=== PATIENT | female | born 1930 | race Caucasian/White ===

== ENCOUNTER 2017-10-06 12:29 | Emergency (ER) | payer MEDICARE ==
--- NOTE | 2017-10-06 12:39 | ED Physician Documentation ---
General Adult - HISTORIAN Historian: patient - HPI Stated Complaint: fall, hip pain Chief Complaint: General Adult Onset: minutes Timing: still present Severity: moderate Further Comments: yes (Pt is an 87 yo female who tripped and fell when she was entering her house and landed on a carpeted floor. Pt c/o R hip soreness, but says this has been improving since the incident a short time ago. Pt is able to stand and walk and appears in little distress. There is no rotation of the LE.) - ROS CONST: no problems EYES/ENT: none CVS/RESP: none GI/: none MS/SKIN/LYMPH: other (R hip soreness) - PAST HX Past History: hypertension, other (gout) Allergies/Adverse Reactions: Allergies Allergy/AdvReac Type Severity Reaction Status Date / Time No Known Allergies Allergy Verified 10/06/17 12:42 Home Medications: Ambulatory Orders Medication Instructions Recorded Hydroxyurea [hydroxyure] 500 mg PO DAILY 07/31/12 - SOCIAL HX Smoking History: non-smoker - FAMILY HX Family History: No - VITAL SIGNS Vital Signs: Vital Signs Temp Pulse Resp BP Pulse Ox 145/82 12/25/12 16:27 - REVIEWED ASSESSMENTS Nursing Assessment Reviewed: Yes Vitals Reviewed: Yes Progress - Progress Progress: Pt moves LE's very well and is surprising limber for age. Pt agrees no x-ray is necessary. Pt states that she has "more soreness than actual pain." Tylenol/Motrin prn. General Adult Physical Exam - PHYSICAL EXAM GENERAL APPEARANCE: no distress NECK: normal inspection, supple RESPIRATORY: no resp distress, chest non-tender, breath sounds normal CVS: reg rate & rhythm, heart sounds normal BACK: normal inspection, no CVA tenderness SKIN: warm/dry, normal color EXTREMITIES: normal range of motion, no evidence of injury, other (slight tenderness R hip laterally. Pt has FROM and is suprising limber for age.) NEURO: oriented X3, motor nml, sensation nml Discharge Clincal Impression: R hip strain Referrals: Suzette Kilpatrick MD [Primary Care Provider] - Condition: Good Disposition: 01 HOME, SELF-CARE Decision to Admit: NO Decision Time: 12:59
[2017-10-06 12:46] VITALS: BP 161/66
== END 2017-10-06 13:03 | disposition home or self-care (01) ==
LOC: ED 12:29
DX: S76.011A Strain of muscle, fascia and tendon of right hip, initial encounter (principal); W19.XXXA Unspecified fall, initial encounter; Y92.9 Unspecified place or not applicable
CPT/HCPCS: 99282

== ENCOUNTER 2017-10-12 12:34 | Inpatient (IN) | payer MEDICARE ==
--- NOTE | 2017-10-12 13:40 | History and Physical Report ---
History of Present Illnes - History of Present Illness Reason for Visit: R hip fx History of Present Illness: Patient fell a week ago and suffered a R hip fx. She underwent R hip hemiarthroplasty by Dr. Lombardo at [facility] on 10-10-17. Post op course has been uncomplicated except some anemia. Baseline in the 9 range. Today is 8. She has polycythemia vera and has had some labs and supplements added by Medicine at [facility]. She is feeling good. Has not taken any pain pills yet. She was also found to have UTI at [facility]. - Past Medical History Cardiac: HTN Heme/Onc: Anemia NOS, B12 deficiency, Iron deficiency anemia, Other ( Polycythemia Vera - DR. Forrester) Musculoskeletal: Osteoarthritis Endocrine: Other (Gout) - Past Surgical History Past Surgical History: Appendectomy, Hysterectomy, Total Hip Replacement (R) - Past Family History Mother Family History: , Other (hip fx) Father Family History: CVA, - Past Social History Smoke: No Alcohol: None Drugs: None Lives: Alone Domestic Violence: Negative - Health Maintenance Health Maintenance: Influenza Vaccine, Pneumococcal Vaccine Influenza Vaccine: Current for this Influenza Season Pneumonia Vaccine: Yes Resuscitation Status: full Review of Systems - Review of Systems Constitutional: Weakness. negative: Fever Eyes: negative: pain ENT: negative: Nose Discharge, Nose Congestion Respiratory: negative: Cough, Shortness of Breath Cardiovascular: negative: Chest Pain Gastrointestinal: negative: Nausea, Vomiting, Abdominal Pain, Diarrhea, Constipation Genitourinary: negative: Dysuria, Frequency Musculoskeletal: Leg Pain (mild ache). negative: Neck Pain Skin: negative: Rash Neurological: Weakness - Medications/Allergies Allergies/Adverse Reactions: Allergies Allergy/AdvReac Type Severity Reaction Status Date / Time No Known Allergies Allergy Verified 10/06/17 12:42 Home Medications: Home Medications Acetaminophen [Tylenol] 650 mg PO QID PRN 10/12/17 Cefdinir [Omnicef] 300 mg PO BID 10/12/17 Cholecalciferol [Vitamin D-3] 2,000 units PO QDAY 10/12/17 Cyanocobalamin [Vitamin B-12] 1 ml SQ DAILY 10/12/17 Enoxaparin Sodium [Lovenox] 40 mg SQ DAILY 10/12/17 Ferrous Sulfate [Feosol] 325 mg PO DAILY 10/12/17 Folic Acid [Folvite] 1 mg PO DAILY 10/12/17 HYDROcodone /APAP 5/325 [[place] 5/325] 5 - 325 mg PO QID PRN 10/12/17 Hydroxyurea [Hydrea] 500 mg PO [id number] 10/12/17 Polyethylene Glycol 3350 [Miralax] 17 g PO DAILY PRN 10/12/17 Exam - Exam General: Alert, Oriented to Person, Oriented to Place, Oriented to Time, Cooperative, No acute distress HEENT: Atraumatic, PERRLA, EOMI, Mouth Mucous membr. moist/[place] Neck: Normal Range of Motion Lungs: Clear to auscultation, Normal air movement, Speaks full Sentences Cardiovascular: Regular rate Abdomen: Normal bowel sounds, Soft, No tenderness Integumentary: Normal, Other (R hip incision - collette - no signs of infection.) Extremities: No: No edema Neurological: Generalized Weakness Psych/Mental Status: Mental status NL, Mood NL, Appropriate Affect, Intact Judgment Assessment/Plan - Assessment/Plan (1) Status post hip hemiarthroplasty Status: Acute Current Visit: Yes Plan: Admit for PT/OT. ON lovenox for 14 more days for DVT prevention. Patient is already ambulating well. Posterior hip dislocations for 5 weeks. [place] removed in 10-14 days. F/U xrays in 1 month. (2) Closed right hip fracture Status: Acute Current Visit: Yes Qualifiers: Encounter type: subsequent encounter Fracture healing: with routine healing Qualified Code(s): S72.001D - Fracture of unspecified part of neck of right femur, subsequent encounter for closed fracture with routine healing Plan: Patient had a vitamin D level of 10. She was started on Vitamin D and Calcium. (3) HTN (hypertension) Status: Chronic Current Visit: No Qualifiers: Hypertension type: essential hypertension Qualified Code(s): I10 - Essential (primary) hypertension Plan: Patient on metoprolol 50 mg bid. Her maxzide is on hold due to possible acute kidney injury. Potassium was noted at 5.1 and she got a dose of kayexelate at [facility]. (4) Anemia Status: Acute Current Visit: Yes Qualifiers: Anemia type: unspecified type Qualified Code(s): D64.9 - Anemia, unspecified Plan: Will monitor closely. Just started iron supplement daily. Watch for constipation. She had acute kidney injury noted at [facility]. Her Cr was 1.10 on admission. Maxzide was held. She did get IVF hydration. (5) Iron deficiency anemia Status: Acute Current Visit: Yes Qualifiers: Iron deficiency anemia type: unspecified iron deficiency Qualified Code(s) : D50.9 - Iron deficiency anemia, unspecified (6) Polycythemia vera Status: Chronic Current Visit: No Plan: Patient continued on hydroxyurea 1000 mg on Mon and Thur and 500 mg on Sun, Sun , Sun, Sat, and Sun. (7) UTI (urinary tract infection) Status: Acute Current Visit: Yes Qualifiers: Urinary tract infection type: acute cystitis Hematuria presence: with hematuria Qualified Code(s): N30.01 - Acute cystitis with hematuria Plan: Will finish cefdinir. Push fluids. Patient had perkins during surgery. Urine culture grew pansensitive E.Coli. She was started on rocephin initially then transitioned to cedinir. This will finish in 5 days. (8) Gout Status: Chronic Current Visit: No Qualifiers: Gout site: unspecified site Gout etiology: unspecified cause Chronicity: chronic Presence of tophus: without tophus Qualified Code(s): M1A.9XX0 - Chronic gout, unspecified, without tophus (tophi) Plan: Continue allopurinol. (9) Vitamin B12 deficiency Status: Acute Current Visit: Yes Plan: B12 noted to be 228. She was started on B12 1000 IU daily. VTE Assessment - RISK FACTOR SCORE VTE RISK FACTOR SCORES: AGE OVER 60 YEARS, HIP, PELVIS, OR LEG FX - RISK VTE MODERATE RISK: SCORE OF 2 (RISK PROXIMAL DVT 2-4%) PROPHYAXIS NEEDED
[2017-10-12 14:13] VITALS: BMI 21.4
[2017-10-12] MEDS ORDERED: ACETAMINOPHEN 325 MG TABLET PO PRN (14:56)
[2017-10-12] MEDS ORDERED: POLYETHYLENE GLYCOL 3350 17 GM POWD.PACK PO PRN ×2 (14:59→16:04)
[2017-10-12] MEDS ORDERED: HYDROcodone /APAP 5/325 1 EACH TABLET PO PRN ×2 (14:59→16:04)
[2017-10-12] MEDS: FERROUS SULFATE 325 MG TABLET PO SCH (16:31)
[2017-10-12] MEDS: METOPROLOL TARTRATE 50 MG TABLET PO SCH (20:17)
[2017-10-12] MEDS: CEFDINIR 300 MG CAPSULE PO SCH (20:17)
[2017-10-12] MEDS ORDERED: LOPRESSOR 50 MG PO SCH (21:00)
[2017-10-13] MEDS ORDERED: ALLOPURINOL 100 MG TABLET ONE (00:55)
[2017-10-13] MEDS ORDERED: ENOXAPARIN SODIUM 40 MG/0.4 ML DISP.SYRIN SQ ONE (00:55)
[2017-10-13] MEDS ORDERED: CHOLECALCIFEROL (VIT D3) 1,000 UNIT TABLET PO ONE (00:56)
[2017-10-13] MEDS ORDERED: ALLOPURINOL 300 MG PO SCH (09:00)
[2017-10-13] MEDS ORDERED: CHOLECALCIFEROL (VIT D3) 1,000 UNIT TABLET PO SCH ×2 (09:00)
[2017-10-13] MEDS ORDERED: FERROUS SULFATE 325 MG PO SCH (09:00)
[2017-10-13] MEDS: FOLIC ACID 1 MG TABLET PO SCH (09:01)
[2017-10-13] MEDS: METOPROLOL TARTRATE 50 MG TABLET PO SCH ×2 (09:02→20:06)
[2017-10-13] MEDS: HYDROXYUREA 500 MG CAPSULE PO SCH (09:02)
[2017-10-13] MEDS: CYANOCOBALAMIN (VITAMIN B12) 1,000 MCG TABLET PO SCH (09:02)
[2017-10-13] MEDS: ENOXAPARIN SODIUM 40 MG/0.4 ML DISP.SYRIN SQ SCH (09:02)
[2017-10-13] MEDS: ALLOPURINOL 100 MG TABLET PO SCH (09:02)
[2017-10-13] MEDS: CEFDINIR 300 MG CAPSULE PO SCH ×2 (09:07→20:05)
[2017-10-13] MEDS: FERROUS SULFATE 325 MG TABLET PO SCH (11:10)
[2017-10-14] MEDS: ALLOPURINOL 100 MG TABLET PO SCH (08:55)
[2017-10-14] MEDS: ENOXAPARIN SODIUM 40 MG/0.4 ML DISP.SYRIN SQ SCH (08:56)
[2017-10-14] MEDS: FOLIC ACID 1 MG TABLET PO SCH (08:56)
[2017-10-14] MEDS: CYANOCOBALAMIN (VITAMIN B12) 1,000 MCG TABLET PO SCH (08:56)
[2017-10-14] MEDS: CHOLECALCIFEROL (VIT D3) 1,000 UNIT TABLET PO SCH (08:56)
[2017-10-14] MEDS: HYDROXYUREA 500 MG CAPSULE PO SCH (08:56)
[2017-10-14] MEDS: METOPROLOL TARTRATE 50 MG TABLET PO SCH ×2 (08:56→20:15)
[2017-10-14] MEDS: CEFDINIR 300 MG CAPSULE PO SCH ×2 (08:56→20:18)
[2017-10-14] MEDS: FERROUS SULFATE 325 MG TABLET PO SCH (11:27)
[2017-10-15] MEDS: FOLIC ACID 1 MG TABLET PO SCH (09:53)
[2017-10-15] MEDS: HYDROXYUREA 500 MG CAPSULE PO SCH ×2 (09:54→13:23)
[2017-10-15] MEDS: ENOXAPARIN SODIUM 40 MG/0.4 ML DISP.SYRIN SQ SCH (09:54)
[2017-10-15] MEDS: METOPROLOL TARTRATE 50 MG TABLET PO SCH ×2 (09:54→20:17)
[2017-10-15] MEDS: ALLOPURINOL 100 MG TABLET PO SCH (09:55)
[2017-10-15] MEDS: CYANOCOBALAMIN (VITAMIN B12) 1,000 MCG TABLET PO SCH (09:58)
[2017-10-15] MEDS: CHOLECALCIFEROL (VIT D3) 1,000 UNIT TABLET PO SCH (09:58)
[2017-10-15] MEDS: CEFDINIR 300 MG CAPSULE PO SCH ×2 (10:05→20:17)
[2017-10-15] MEDS: FERROUS SULFATE 325 MG TABLET PO SCH (11:18)
[2017-10-15] MEDS ORDERED: HYDROXYUREA 500 MG CAPSULE PO SCH (12:00)
[2017-10-15 13:12] LABS: MEAN CORPUSCULAR HEMOGLOBIN 41.9 pg (28.0-34.0); MEAN CORPUSCULAR VOLUME 127.4 fl (80.0-100.0)
[2017-10-16] MEDS: CEFDINIR 300 MG CAPSULE PO SCH ×2 (09:23→19:56)
[2017-10-16] MEDS: ENOXAPARIN SODIUM 40 MG/0.4 ML DISP.SYRIN SQ SCH (09:24)
[2017-10-16] MEDS: FOLIC ACID 1 MG TABLET PO SCH (09:24)
[2017-10-16] MEDS: METOPROLOL TARTRATE 50 MG TABLET PO SCH ×2 (09:24→19:57)
[2017-10-16] MEDS: HYDROXYUREA 500 MG CAPSULE PO SCH (09:24)
[2017-10-16] MEDS: CHOLECALCIFEROL (VIT D3) 1,000 UNIT TABLET PO SCH (09:25)
[2017-10-16] MEDS: ALLOPURINOL 100 MG TABLET PO SCH (09:25)
[2017-10-16] MEDS: CYANOCOBALAMIN (VITAMIN B12) 1,000 MCG TABLET PO SCH (09:25)
[2017-10-16] MEDS: FERROUS SULFATE 325 MG TABLET PO SCH (12:14)
[2017-10-17] MEDS: ENOXAPARIN SODIUM 40 MG/0.4 ML DISP.SYRIN SQ SCH (09:12)
[2017-10-17] MEDS: CYANOCOBALAMIN (VITAMIN B12) 1,000 MCG TABLET PO SCH (09:13)
[2017-10-17] MEDS: ALLOPURINOL 100 MG TABLET PO SCH (09:13)
[2017-10-17] MEDS: CEFDINIR 300 MG CAPSULE PO SCH ×2 (09:14→20:07)
[2017-10-17] MEDS: HYDROXYUREA 500 MG CAPSULE PO SCH (09:14)
[2017-10-17] MEDS: FOLIC ACID 1 MG TABLET PO SCH (09:14)
[2017-10-17] MEDS: CHOLECALCIFEROL (VIT D3) 1,000 UNIT TABLET PO SCH (09:14)
[2017-10-17] MEDS: METOPROLOL TARTRATE 50 MG TABLET PO SCH ×2 (09:14→20:07)
[2017-10-17] MEDS: FERROUS SULFATE 325 MG TABLET PO SCH (11:32)
[2017-10-18] MEDS: ENOXAPARIN SODIUM 40 MG/0.4 ML DISP.SYRIN SQ SCH (08:34)
[2017-10-18] MEDS: FOLIC ACID 1 MG TABLET PO SCH (08:34)
[2017-10-18] MEDS: CHOLECALCIFEROL (VIT D3) 1,000 UNIT TABLET PO SCH (08:34)
[2017-10-18] MEDS: ALLOPURINOL 100 MG TABLET PO SCH (08:34)
[2017-10-18] MEDS: CYANOCOBALAMIN (VITAMIN B12) 1,000 MCG TABLET PO SCH (08:34)
[2017-10-18] MEDS: METOPROLOL TARTRATE 50 MG TABLET PO SCH ×2 (08:34→19:46)
[2017-10-18] MEDS: FERROUS SULFATE 325 MG TABLET PO SCH (11:24)
[2017-10-18] MEDS: HYDROXYUREA 500 MG CAPSULE PO SCH (11:24)
--- NOTE | 2017-10-19 08:18 | Discharge Summary ---
Discharge Summary - Discharge Sumary History of Present Illness: Patient fell a week ago and suffered a R hip fx. She underwent R hip hemiarthroplasty by Dr. Lombardo at [facility] on 10-10-17. Post op course has been uncomplicated except some anemia. Baseline in the 9 range. Today is 8. She has polycythemia vera and has had some labs and supplements added by Medicine at [facility]. She is feeling good. Has not taken any pain pills yet. She was also found to have UTI at [facility]. Condition at Discharge: Stable Home Medications: Ambulatory Orders Medication Instructions Recorded Hydroxyurea [hydroxyure] 500 mg PO MTH12 07/31/12 Acetaminophen [Tylenol] 650 mg PO QID PRN 10/12/17 Cholecalciferol [Vitamin D-3] 2,000 units PO QDAY 10/12/17 Folic Acid [Folvite] 1 mg PO DAILY 10/12/17 Hydroxyurea [Hydrea] 500 mg PO [id number] 10/12/17 Polyethylene Glycol 3350 [Miralax] 17 g PO DAILY PRN 10/12/17 Cyanocobalamin [Vitamin B-12] 1,000 mcg PO DAILY tablet 10/16/17 Ferrous Sulfate [Feosol] 325 mg PO 1100 tablet. 10/16/17 Metoprolol Tartrate [Lopressor] 50 mg PO BID tablet 10/16/17 Consultations this Visit: None Procedures this Visit: None Allergies/Adverse Reactions: Allergies Allergy/AdvReac Type Severity Reaction Status Date / Time No Known Allergies Allergy Verified 10/06/17 12:42 Patient Problems: Current Active Problems Problem Status Onset Anemia Acute Closed right hip fracture Acute Iron deficiency anemia Acute Status post hip hemiarthroplasty Acute UTI (urinary tract infection) Acute Vitamin B12 deficiency Acute Discharge Summary: Patient did well during her SNF stay. She reached therapy goals and will discharged with outpatient therapy. [facility] were not ready to come out at discharge so will bring her back in a few days for this. Maxzide continued to be held. F/U me in a month. She will see Dr. Lombardo in several weeks. Completed antibiotics for UTI. Discharged home in good condition. Hospital Course: Discharge Dx. Weakness. R hip fx - s/p hemiarthroplasty. HTN. polycythemia vera. Disposition - home with outpatient therapy
[2017-10-19] MEDS: FOLIC ACID 1 MG TABLET PO SCH (09:27)
[2017-10-19] MEDS: HYDROXYUREA 500 MG CAPSULE PO SCH (09:28)
[2017-10-19] MEDS: METOPROLOL TARTRATE 50 MG TABLET PO SCH ×2 (09:28→20:24)
[2017-10-19] MEDS: ENOXAPARIN SODIUM 40 MG/0.4 ML DISP.SYRIN SQ SCH (09:28)
[2017-10-19] MEDS: ALLOPURINOL 100 MG TABLET PO SCH (09:28)
[2017-10-19] MEDS: CHOLECALCIFEROL (VIT D3) 1,000 UNIT TABLET PO SCH (09:28)
[2017-10-19] MEDS: CYANOCOBALAMIN (VITAMIN B12) 1,000 MCG TABLET PO SCH (09:28)
[2017-10-19] MEDS: FERROUS SULFATE 325 MG TABLET PO SCH (11:30)
[2017-10-20 08:56] VITALS: BP 151/68
[2017-10-20] MEDS: CYANOCOBALAMIN (VITAMIN B12) 1,000 MCG TABLET PO SCH (09:33)
[2017-10-20] MEDS: CHOLECALCIFEROL (VIT D3) 1,000 UNIT TABLET PO SCH (09:33)
[2017-10-20] MEDS: METOPROLOL TARTRATE 50 MG TABLET PO SCH (09:33)
[2017-10-20] MEDS: ALLOPURINOL 100 MG TABLET PO SCH (09:33)
[2017-10-20] MEDS: ENOXAPARIN SODIUM 40 MG/0.4 ML DISP.SYRIN SQ SCH (09:34)
[2017-10-20] MEDS: HYDROXYUREA 500 MG CAPSULE PO SCH (09:34)
[2017-10-20] MEDS: FOLIC ACID 1 MG TABLET PO SCH (09:34)
[2017-10-20] MEDS ORDERED: DILTIAZEM HCL 25 MG/ 5ML VIAL ONE (12:11)
[2017-10-20] MEDS: FERROUS SULFATE 325 MG TABLET PO SCH (12:26)
== END 2017-10-20 13:20 | disposition home or self-care (01) | DRG 560 ==
LOC: SOUTH 12:34
PROVIDERS: ADMIT Family Medicine; ATTEND Family Medicine
DX: S72.001D Fracture of unspecified part of neck of right femur, subsequent encounter for closed fracture with routine healing (principal); X58.XXXD Exposure to other specified factors, subsequent encounter; I10 Essential (primary) hypertension; D50.9 Iron deficiency anemia, unspecified; N30.00 Acute cystitis without hematuria
CPT/HCPCS: 36415; 85027; J1650; J3490

== ENCOUNTER 2017-11-20 09:54 | Outpatient (CLI) | payer MEDICARE ==
[2017-11-20 10:12] LABS: MEAN CORPUSCULAR HEMOGLOBIN 40.1 pg (28.0-34.0); MEAN CORPUSCULAR VOLUME 128.2 fl (80.0-100.0)
== END 2017-11-20 09:55 ==
LOC: LAB 09:54
PROVIDERS: ATTEND Family Medicine
DX: D64.9 Anemia, unspecified (principal)
CPT/HCPCS: 36415; 85027

== ENCOUNTER 2018-01-27 22:01 | Emergency (ER) | payer MEDICARE ==
[2018-01-27] MEDS ORDERED: Lidocaine 1% 5ml(IM or SUTURE)(PAIN CLINIC) IJ ONE (23:06)
[2018-01-27] MEDS ORDERED: SODIUM BICARBONATE 2.4 MEQ VIAL INJ ONE (23:06)
--- NOTE | 2018-01-27 23:10 | ED Physician Documentation ---
Fall - HISTORIAN Historian: patient, paramedics - [facility] Chief Complaint: Fall Onset: just prior to arrival Context: tripped, lost balance r: severe Associated Symptoms:: unsure Location of Pain/Injury: head, face Injury to Right Extremity: none Injury to Left Extremity: none Further Comments: yes (87 year old female patient brought in by EMS after falling on the driveway and striking her face on the concrete. Patient had been playing cards at a friends house, got out of the car to go back in the house to get her ice cream; tripped and fell. Denies any palpitations; CP or SOB prior to fall.) - ROS CONST: no problems NEURO: denies: dizziness, anxiety, depression MS/SKIN/LYMPH: other. denies: weakness, numbness, neck pain, back pain, ankle swelling, leg swelling, rash EYES/ENT: none CVS/RESP: none GI/: denies: problems urinating, nausea, vomiting - PAST HX Past History: A-Fib (on Eliquis), other (HTN, Gout) Allergies/Adverse Reactions: Allergies Allergy/AdvReac Type Severity Reaction Status Date / Time No Known Allergies Allergy Verified 01/28/18 00:08 Home Medications: Ambulatory Orders Medication Instructions Recorded Allopurinol [Zyloprim] 300 mg PO DAILY 01/28/18 Amiodarone HCl [Pacerone] 200 mg PO BID 01/28/18 Apixaban [Eliquis] 60 mg PO BID 01/28/18 Cyanocobalamin [Vitamin B-12] 1,000 mcg PO DAILY 01/28/18 Diltiazem HCl [Diltiazem 24Hr Cd] 120 mg PO DAILY 01/28/18 Furosemide [Lasix] 40 mg PO DAILY 01/28/18 Hydroxyurea [Hydrea] 1,000 mg PO MTH12 01/28/18 Hydroxyurea [Hydrea] 500 mg PO [id number] 01/28/18 Metoprolol Tartrate [Lopressor] 25 mg PO BID 01/28/18 - SOCIAL HX Smoking History: non-smoker - FAMILY HX Family History: denies: none - VITAL SIGNS Vital Signs: Vital Signs Temp Pulse Resp BP Pulse Ox 151/68 10/20/17 08:55 - REVIEWED ASSESSMENTS Nursing Assessment Reviewed: Yes Vitals Reviewed: Yes Procedures Wound Location: face Wound Length: 4.5 cm x 2 cm "Y" shape Wound's Depth, Shape: irregular, flap Irrigated w/ Saline (ccs): 250 Betadine Prep?: No (chlorhexidine) Anesthesia: 1% Lidocaine (with neut) Volume of Anesthetic: 5 Wound Repaired With: sutures Suture Size/Type: 6:0 Number of Sutures: 8 Layer Closure?: No Progress: Wound edges fairly well approximated; avulsion abrasion medial to laceration Progress - Progress Progress: 2329 Patient with dry heaves; medicated with zofran. Reviewed CT results with patient and daughter; patient will need ENT consult and monitoring. Family prefer [facility] [place]. [phone] Call to Nikita at [facility] - refused patient, "trauma". [phone] Call to [facility] - patient accepted by Dr Varner to . ED Results Lab/Radiology - Radiology Radiology Impressions: CT brain noncontrast FINDINGS: There is no acute intracranial hemorrhage, midline shift or mass effect. There is no hydrocephalus. 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 There is a left periorbital hematoma. There is a nondisplaced fracture of the inferior lateral left maxilla sinus wall. There is a fracture of the left zygomatic arch with 3 mm offset. There is extraconal gas noted with a nondisplaced left lateral orbital wall fracture. No ocular muscle entrapment. IMPRESSION: No acute intracranial hemorrhage. Left facial fractures as above. Electronically signed on Jan 27, 2018 11:06:10 PM CDT by:Adam Tony CT maxillofacial without contrast Clinical history: Facial trauma Technique: Multiple contiguous axial images were taken through the maxillofacial region without the use of contrast. Findings: There is a left zygomatic arch fracture with 3 mm offset. There is inferior lateral left maxilla sinus wall fracture with minimal displacement. There is hemorrhage within the left maxillary sinus. There is a minimally displaced left lateral orbital wall fracture. There is extraconal gas noted. No intraconal gas identified. There is no extraocular muscle entrapment. No other facial fractures identified. Impression: Left facial fractures as above. Electronically signed on Jan 27, 2018 11:15:16 PM CDT by: Adam Tony CT of the cervical spine Clinical history: Fall earlier tonight. Injury. Technique: CT of the cervical spine is performed in contiguous axial slices with sagittal and coronal reconstructions Findings: The alignment of the vertebrae is anatomic. Disc spaces are narrowed at C4-5 and C5-6 with minimal osteophyte formation consistent with degenerative disc disease. There is ankylosis of the facet joint at C4-5 on the left. The facet joints are narrowed throughout the cervical vertebrae. Prevertebral soft tissues are within normal limits. The C1-2 articulation is normal and the base of the odontoid is intact. There is no evident fracture. Bilateral pleural effusions are evident on images through the upper lung zones. Impression: 1. Spondylosis. 2. No fracture. 3. Bilateral pleural effusions Electronically signed on Jan 28, 2018 12:21:34 AM CDT by: Yasir Mckenna - Orders Orders: ED Orders Category Date Time Status CT BRAIN W/O CONTRAST Stat Exams 01/27/[address] MAXILLOFACIAL W/O DYE Stat Exams 01/27/18 Ordered CBC/PLATELET/DIFF Stat Lab 01/27/18 22:24 Received CMP Stat Lab 01/27/18 22:24 Received UA W/MICRO IF INDICATED Stat Lab 01/27/18 22:13 Ordered Lidocaine 1% 5ml(IM or SUTURE) [Xylocaine] Med 01/27/18 23:06 Discontinued 50 mg IJ NOW ONE Sodium Bicarbonate [Neut] Med 01/27/18 23:06 Discontinued 2.4 meq INJ NOW ONE EKG WITH COMPARISON Stat Ther 01/27/18 22:13 Ordered Fall Physical Exam - Physical Exam General Appearance: mild distress Head: non-tender, no swelling, no obvious injury Neck: non-tender, painless ROM, trachea midline Eye: EAG[place], EOMI, lids & conjunct. nml, subconjunctival hemorrhag, periorbital edema (left - edema; swollen shut), other (globe intact; vision intact) ENT: nml external inspection, no dental injury, no oral injury, airway nml, clotted nasal blood. No: dental injury Resp/CVS: chest non-tender, no ecchymosis, breath sounds nml, no resp. distress , heart sounds nml, other (Irregularly irregular) Abdomen: soft, no organomegaly, normal bowel sounds, no abdominal bruit, no distension Neuro: oriented x3, CN's nml as tested, sensation nml, motor nml, mood/affect nml, algebra teacher nml, reflexes nml, algebra teacher symmetrical Skin: color nml, no rash, nml palp., dry, other (laceration above left eye 4 cm ; with avulsion abrasion) Back: normal inspection, no CVA tenderness Extremities: atraumatic, pelvis stable, hips non-tender, no pedal edema, nml ROM , nml color/temp - [place] Coma Score Eyes Open: Spontaneous Speech: Oriented Motor: Obeys Commands Discharge Clincal Impression: Fall Qualifiers: Encounter type: initial encounter Qualified Code(s): W19.XXXA - Unspecified fall, initial encounter Atrial fibrillation Qualifiers: Atrial fibrillation type: chronic Qualified Code(s): I48.2 - Chronic atrial fibrillation Closed head injury Qualifiers: Encounter type: initial encounter Qualified Code(s): S09.90XA - Unspecified injury of head, initial encounter Facial laceration Qualifiers: Encounter type: initial encounter Qualified Code(s): S01.81XA - Laceration without foreign body of other part of head, initial encounter Zygomatic arch fracture Qualifiers: Encounter type: initial encounter Fracture type: closed Laterality: left Qualified Code(s): S02.40FA - Zygomatic fracture, left side, initial encounter for closed fracture Fracture of maxillary sinus Qualifiers: Encounter type: initial encounter Fracture type: closed Qualified Code(s): S02.401A - Maxillary fracture, unspecified side, initial encounter for closed fracture Orbital wall fracture Qualifiers: Encounter type: initial encounter Fracture type: closed Qualified Code(s): S02.80XA - Fracture of other specified skull and facial bones, unspecified side , initial encounter for closed fracture Condition: Fair Disposition: 02 XFER [facility] Decision to Admit: NO Decision Time: 00:39
[2018-01-27 23:18] LABS: BASOPHILS % 0.4 (0.0-1.5); EOSINOPHILS % 1.1 % (0.0-6.8); MEAN CORPUSCULAR HEMOGLOBIN 37.2 pg (28.0-34.0); MEAN CORPUSCULAR VOLUME 116.8 fl (80.0-100.0); MONOCYTES % 7.3 % (0.0-11.0); NEUTROPHILS # 5.1 # k/uL (1.4-7.7)
[2018-01-27] MEDS ORDERED: ONDANSETRON HCL/PF 4 MG/ 2ML VIAL IVP ONE (23:21)
--- NOTE | 2018-01-27 23:29 | Diagnostic Imaging Report ---
[facility] [address] [facility] [address] [address] Report Submission Date: Jan 27, 2018 11:15:16 PM CDT Patient Study Name: ALINA WILEY Date: Jan 27, 2018 10:44:25 PM CDT Modality Type: CT\SR Gender: F Description: CT MAXILLOFACIAL W/O D : [birth year] Institution: [facility] Physician: LWO STEPHENS (ACCESS SERVICES ASSISTANT) - ER CT maxillofacial without contrast Clinical history: Facial trauma Technique: Multiple contiguous axial images were taken through the maxillofacial region without the use of contrast. Findings: There is a left zygomatic arch fracture with 3 mm offset. There is inferior lateral left maxilla sinus wall fracture with minimal displacement. There is hemorrhage within the left maxillary sinus. There is a minimally displaced left lateral orbital wall fracture. There is extraconal gas noted. No intraconal gas identified. There is no extraocular muscle entrapment. No other facial fractures identified. Impression: Left facial fractures as above. Electronically signed on Jan 27, 2018 11:15:16 PM CDT by: Adam BARCLAY
--- NOTE | 2018-01-27 23:29 | Diagnostic Imaging Report ---
[facility] [address] [facility] [address] [place], [place]. [address] Report Submission Date: Jan 27, 2018 11:06:10 PM CDT Patient Study Name: ALINA WILEY Date: Jan 27, 2018 10:38:06 PM CDT Modality Type: CT\SR Gender: F Description: CT BRAIN W/O CONTRAST : [birth year] Institution: [facility] Physician: LOW STEPHENS (FINANCIAL COMPLIANCE EXAMINER) - ER CT brain noncontrast CLINICAL HISTORY: PT STATES FALL TODAY, FACE HIT THE DRIVEWAY. PT DID VOMIT DURING EXAM, COMPLAINS OF EYE PAIN. MULTIPLE LACERATIONS TO THE FACE. (Hx) / ITS.REASON fall TECHNIQUE: 5 mm contiguous axial images of the brain, noncontrast. FINDINGS: There is no acute intracranial hemorrhage, midline shift or mass effect. There is no hydrocephalus. 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 There is a left periorbital hematoma. There is a nondisplaced fracture of the inferior lateral left maxilla sinus wall. There is a fracture of the left zygomatic arch with 3 mm offset. There is extraconal gas noted with a nondisplaced left lateral orbital wall fracture. No ocular muscle entrapment. IMPRESSION: No acute intracranial hemorrhage. Left facial fractures as above. Electronically signed on Jan 27, 2018 11:06:10 PM CDT by: Adam BARCLAY
[2018-01-28 00:49] VITALS: BP 111/65
--- NOTE | 2018-01-28 04:47 | Diagnostic Imaging Report ---
[facility] [address] [facility] [address] [place], [place]. [address] Report Submission Date: Jan 28, 2018 12:21:34 AM CDT Patient Study Name: ALINA WILEY Date: Jan 27, 2018 11:59:04 PM CDT Modality Type: CT\SR Gender: F Description: CT C-SPINE W/O CONTRAS : [birth year] Institution: [facility] Physician: LOW STEPHENS (CIVIL ENGINEERING TEACHER) - ER CT of the cervical spine Clinical history: Fall earlier tonight. Injury. Technique: CT of the cervical spine is performed in contiguous axial slices with sagittal and coronal reconstructions Findings: The alignment of the vertebrae is anatomic. Disc spaces are narrowed at C4-5 and C5-6 with minimal osteophyte formation consistent with degenerative disc disease. There is ankylosis of the facet joint at C4-5 on the left. The facet joints are narrowed throughout the cervical vertebrae. Prevertebral soft tissues are within normal limits. The C1-2 articulation is normal and the base of the odontoid is intact. There is no evident fracture. Bilateral pleural effusions are evident on images through the upper lung zones. Impression: 1. Spondylosis. 2. No fracture. 3. Bilateral pleural effusions Electronically signed on Jan 28, 2018 12:21:34 AM CDT by: Yasir BARCLAY
== END 2018-01-28 00:51 | disposition short-term general hospital (02) ==
LOC: ED 22:01
DX: I48.2 Chronic atrial fibrillation (principal); S09.90XA Unspecified injury of head, initial encounter; S01.81XA Laceration without foreign body of other part of head, initial encounter; S02.40FA Zygomatic fracture, left side, initial encounter for closed fracture; S02.401A Maxillary fracture, unspecified side, initial encounter for closed fracture; S02.80XA Fracture of other specified skull and facial bones, unspecified side, initial encounter for closed fracture; W19.XXXA Unspecified fall, initial encounter; Y92.014 Private driveway to single-family (private) house as the place of occurrence of the external cause; Y93.01 Activity, walking, marching and hiking; Y99.9 Unspecified external cause status
CPT/HCPCS: 70450; 70486; 72125; 80053; 85025; 93005; J2405; 12015; 96372; 96374; S1016

== ENCOUNTER 2018-02-11 10:08 | Outpatient (CLI) | payer MEDICARE ==
[2018-02-11 10:32] LABS: BASOPHILS % 0.4 (0.0-1.5); EOSINOPHILS % 0.8 % (0.0-6.8); MEAN CORPUSCULAR HEMOGLOBIN 36.9 pg (28.0-34.0); MEAN CORPUSCULAR VOLUME 121.1 fl (80.0-100.0); MONOCYTES % 4.7 % (0.0-11.0); NEUTROPHILS # 4.7 # k/uL (1.4-7.7)
== END 2018-02-11 10:10 ==
LOC: LAB 10:08
PROVIDERS: ATTEND Internal Medicine Cardiovascular Disease
DX: I10 Essential (primary) hypertension (principal); I48.0 Paroxysmal atrial fibrillation
CPT/HCPCS: 36415; 80048; 85025

== ENCOUNTER 2018-04-19 08:34 | Inpatient (IN) | payer MEDICARE ==
--- NOTE | 2018-04-19 09:02 | ED Physician Documentation ---
General Adult - HISTORIAN Historian: patient - HPI Stated Complaint: leg swelling Chief Complaint: General Adult Onset: other (weeks) Timing: still present Severity: moderate Further Comments: yes (Pt is an 87 yo female with b/l leg swelling. Pt states this began months ago around [facility], when she fell and had hip surgery. Since then pt has had leg swelling and deep red patches on her lower extremites from her ankle sock line to her knees b/l, with leg and pedal edama. The edema has been getting worse and now her legs are weeping and soak through to the bed. The weeping is new, but the other legs sx have been chronic. Pt has not had cp/sob/n/v. 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), OA, Gout, R hip fx repair) Surgeries/Procedures: other (appendectomy, hysterectomy, R hip replacement) Allergies/Adverse Reactions: Allergies Allergy/AdvReac Type Severity Reaction Status Date / Time diclofenac sodium Allergy Mild Verified 04/19/18 13:02 Home Medications: Ambulatory Orders Medication Instructions Recorded Allopurinol [Zyloprim] 300 mg PO DAILY 01/28/18 Amiodarone HCl [Pacerone] 200 mg PO BID 01/28/18 Apixaban [Eliquis] 2.5 mg PO BID 01/28/18 Cyanocobalamin [Vitamin B-12] 1,000 mcg PO DAILY 01/28/18 Diltiazem HCl [Diltiazem 24Hr Cd] 120 mg PO DAILY 01/28/18 Furosemide [Lasix] 40 mg PO DAILY 01/28/18 Hydroxyurea [Hydrea] 1,000 mg PO MTH12 01/28/18 Hydroxyurea [Hydrea] 500 mg PO [id number] 01/28/18 Metoprolol Tartrate [Lopressor] 25 mg PO BID 01/28/18 - SOCIAL HX Smoking History: non-smoker Alcohol Use: none Drug Use: none - FAMILY HX Family History: Yes (Father: CVA) - VITAL SIGNS Vital Signs: Vital Signs Temp Pulse Resp BP Pulse Ox 111/65 01/28/18 00:46 - REVIEWED ASSESSMENTS Nursing Assessment Reviewed: Yes Vitals Reviewed: Yes Progress - Progress Progress: CXR: Single view of the chest demonstrates a normal cardiac silhouette. Bibasilar parenchymal haziness and blunting of the diaphragmatic region. Osseous structures appropriate for age. Impression: Moderate to large bibasilar infiltrates/effusions. lasix 20 mg IV Rocephin 1 gm IV in ER Admit to Dr. De La Rosa. - EKG/XRAY/CT EKG: rhythm (Afib HR=98; RAD; low voltage in limb leads; non-specific ST & T wave changes.) General Adult Physical Exam - PHYSICAL EXAM GENERAL APPEARANCE: mild distress EENT: pharynx normal NECK: normal inspection, supple RESPIRATORY: no resp distress, rales CVS: irregularly irregular rhy ABDOMEN: soft, no organomegaly, normal bowel sounds BACK: normal inspection, no CVA tenderness SKIN: other (deep red patches on Legs b/l with 3+ edema b/l) EXTREMITIES: edema (3+ b/l), other (legs are very cool to touch b/l, pedal pulsed palpable.) NEURO: oriented X3, motor nml, sensation nml Discharge Clincal Impression: b/l leg/pedal edema Pneumonia Qualifiers: Pneumonia type: due to unspecified organism Laterality: bilateral Lung location: lower lobe of lung Qualified Code(s): J18.1 - Lobar pneumonia, unspecified organism Condition: Stable Disposition: ADMITTED INPATIENT Decision to Admit: [id number] Decision Time: 13:48
[2018-04-19 09:46] LABS: BASOPHILS % 0.5 (0.0-1.5); EOSINOPHILS % 1.1 % (0.0-6.8); MEAN CORPUSCULAR HEMOGLOBIN 32.6 pg (28.0-34.0); MONOCYTES % 11.9 % (0.0-11.0); NEUTROPHILS # 9.1 # k/uL (1.4-7.7)
[2018-04-19 10:05] LABS: eGFR (Non-African) 41
[2018-04-19] MEDS ORDERED: FUROSEMIDE 20 MG/2 ML VIAL IVP ONE (10:36)
[2018-04-19] MEDS ORDERED: cefTRIAXone SODIUM 1 GM in 0.9 % SODIUM CHLORIDE 50 ML IV ONE (12:32)
[2018-04-19 12:51] LABS: TROPONIN T <0.010 ng/mL (<0.010)
[2018-04-19] MEDS ORDERED: cefTRIAXone SODIUM 1 GM in 0.9 % SODIUM CHLORIDE 100 ML IV ONE (13:00)
[2018-04-19] MEDS ORDERED: cefTRIAXone SODIUM 1 GM VIAL ONE (13:03)
[2018-04-19] MEDS ORDERED: AZITHROMYCIN 500 MG VIAL IV ONE (14:47)
[2018-04-19] MEDS ORDERED: 0.9 % SODIUM CHLORIDE 250 ML IV ONE (14:47)
[2018-04-19] MEDS: SALINE FLUSH 10 ML DISP.SYRIN IV SCH ×2 (15:19→21:19)
[2018-04-19] MEDS: AZITHROMYCIN 500 MG in 0.9 % SODIUM CHLORIDE 250 ML IV SCH (15:19)
[2018-04-19 15:26] VITALS: BMI 20.5
[2018-04-19] MEDS: HYDROXYUREA 500 MG CAPSULE PO SCH (16:32)
[2018-04-19] MEDS: cefTRIAXone SODIUM 1 GM in 0.9 % SODIUM CHLORIDE 100 ML IV SCH (16:33)
[2018-04-19] MEDS ORDERED: IPRATROPIUM/ALBUTEROL SULFATE 3 ML AMPUL.NEB NEB PRN (18:57)
--- NOTE | 2018-04-19 19:03 | History and Physical Report ---
History of Present Illnes - History of Present Illness Reason for Visit: Dyspnea History of Present Illness: This is an 87 year old female who presented to the ER with c/o generalized weakness, cough, wheeze and increased pedal edema. Her CXR shows bibasilar pneumonia, and her WBC is elevated. Her pedal edema was been present for several months, but worsening. - Past Medical History Cardiac: HTN Heme/Onc: Anemia NOS, B12 deficiency, Iron deficiency anemia, Other (Polycythemia Vera - DR. Forrester) Musculoskeletal: Osteoarthritis Endocrine: Other (Gout) - Past Surgical History Past Surgical History: Appendectomy, Hysterectomy, Mastectomy, Total Hip Replacement (R) - Past Social History Smoke: No Alcohol: None Drugs: None Lives: Alone Domestic Violence: Negative - Health Maintenance Health Maintenance: Influenza Vaccine, Pneumococcal Vaccine Influenza Vaccine: Current for this Influenza Season Pneumonia Vaccine: Yes Resuscitation Status: Resusciation Status Resuscitation Status Do Not Resuscitate - Unable to Obtain History Unable to Obtain: No Review of Systems - Review of Systems Constitutional: Fever. negative: Chills, Sweats Eyes: negative: pain ENT: negative: Ear Pain, Ear Discharge Respiratory: Cough, Dry, Shortness of Breath, Hemoptysis Cardiovascular: Orthopnea. negative: Chest Pain, Palpitations Gastrointestinal: negative: Nausea, Vomiting Genitourinary: negative: Dysuria, Frequency Musculoskeletal: negative: Neck Pain, Shoulder Pain Skin: Other (venous stasis ulcers on legs). negative: Rash Neurological: negative: Weakness, Numbness - Medications/Allergies Allergies/Adverse Reactions: Allergies Allergy/AdvReac Type Severity Reaction Status Date / Time diclofenac sodium Allergy Mild Verified 04/19/18 13:02 Current Inpatient Medications: Current Inpatient Medications Albuterol/Ipratropium (Duoneb) 3 ml NEB Q6 PRN PRN Reason: Wheezing Allopurinol (Zyloprim) 300 mg PO DAILY [facility] Stop: 04/25/18 23:59 Amiodarone HCl (Pacerone) 200 mg PO BID [facility] Cyanocobalamin (Vitamin B-12) 1,000 mcg PO DAILY [facility] Diltiazem HCl (Cardizem Cd) 120 mg PO DAILY [facility] Furosemide (Lasix) 40 mg PO DAILY [facility] Hydroxyurea (Hydrea) 500 mg PO [id number] [facility] Last Admin: 04/19/18 16:32 Dose: Not Given Hydroxyurea (Hydrea) 1,000 mg PO [facility]12 [facility] Azithromycin 500 mg/ Sodium (Chloride) 250 mls @ 125 mls/hr IV Q24H [facility] Stop: 04/29/18 13:59 Last Admin: 04/19/18 15:19 Dose: 125 mls/hr Ceftriaxone Sodium 1 gm/ (Sodium Chloride) 100 mls @ 100 mls/hr IV Q24H [facility] Last Admin: 04/19/18 16:33 Dose: Not Given Metoprolol Tartrate (Lopressor) 25 mg PO BID [facility] Sodium Chloride (Normal Saline Flush) 3 ml IV BID [facility] Last Admin: 04/19/18 15:19 Dose: 3 ml Exam - Exam Vital Signs: Vital Signs (72 hours) 04/19/18 04/19/18 04/19/18 08:50 10:02 10:03 Temperature 97.7 F Pulse Rate 110 H Pulse Rate [ 75 Pulse ox] Respiratory 18 Rate Blood Pressure 120/83 [Left Arm] Blood Pressure [Right Arm] O2 Sat by Pulse 95 95 Oximetry 04/19/18 04/19/18 04/19/18 10:30 11:00 11:30 Temperature Pulse Rate 107 H 109 H 105 H Pulse Rate [ Pulse ox] Respiratory Rate Blood Pressure [Left Arm] Blood Pressure [Right Arm] O2 Sat by Pulse 93 94 93 Oximetry 04/19/18 04/19/18 04/19/18 12:00 13:00 13:11 Temperature 97.3 F L Pulse Rate 112 H 113 H Pulse Rate [ 101 H Pulse ox] Respiratory 22 Rate Blood Pressure 123/91 [Left Arm] Blood Pressure 105/70 [Right Arm] O2 Sat by Pulse 94 94 95 Oximetry 04/19/18 04/19/18 04/19/18 13:30 13:35 14:00 Temperature Pulse Rate 114 H 111 H Pulse Rate [ 101 H Pulse ox] Respiratory 20 Rate Blood Pressure 123/91 [Left Arm] Blood Pressure [Right Arm] O2 Sat by Pulse 93 94 98 Oximetry 04/19/18 04/19/18 04/19/18 14:30 15:00 15:30 Temperature Pulse Rate 108 H 112 H 114 H Pulse Rate [ Pulse ox] Respiratory Rate Blood Pressure [Left Arm] Blood Pressure [Right Arm] O2 Sat by Pulse 94 96 95 Oximetry 04/19/18 04/19/18 16:00 17:11 Temperature 97.3 F L Pulse Rate 110 H Pulse Rate [ 101 H Pulse ox] Respiratory 20 Rate Blood Pressure 123/91 [Left Arm] Blood Pressure 105/70 [Right Arm] O2 Sat by Pulse 94 94 Oximetry General: Alert, Oriented to Person, Oriented to Place, Oriented to Time, Cooperative HEENT: Atraumatic, PERRLA, Poor Dentition (extensive gum recession) Neck: No: Stridor Lungs: Decreased Air Movement Cardiovascular: Irregularly Irregular Murmur: No: Systolic Murmur Murmur Location: No: [place] Abdomen: Normal bowel sounds, Soft, No tenderness Genitourinary: No: Right Inguinal Hernia, Left Inguinal Hernia Male Genitourinary: No: Other Female Genitourinary: No: Other Integumentary: No: Other Extremities: Other (3+ edema) Neurological: Normal speech Psych/Mental Status: Intact Judgment - Laboratory Results Laboratory Results: Laboratory Results 04/19/18 04/19/18 04/19/18 09:05 09:35 09:35 WBC 12.70 H RBC 3.56 L Hgb 11.6 L Hct 36.6 MCV 103.0 H MCH 32.6 MCHC 31.7 RDW 14.6 H Plt Count 202 Neut % (Auto) 71.9 Lymph % (Auto) 14.6 L [place] % (Auto) 11.9 H Eos % (Auto) 1.1 Baso % (Auto) 0.5 Neut # (Auto) 9.1 H Lymph # (Auto) 1.9 [place] # (Auto) 1.5 H Eos # (Auto) 0.1 Baso # (Auto) 0.1 Reactive Lymphs % 0.0 Reactive Lymphs # 0.0 D-Dimer 1142 H Sodium 141 Potassium 3.4 L Chloride 102 Carbon Dioxide 32 H BUN 44 H Creatinine 1.30 H Estimated Creat Clear 27 Est GFR ( Amer) > 60 Est GFR (Non-Af Amer) 41 L Glucose 95 Calcium 8.9 Total Bilirubin 1.2 AST 26 ALT 43 Alkaline Phosphatase 102 Creatine Kinase < 20 L CK-MB (CK-2) 2.1 Troponin T NT-Pro-B Natriuret Pep 371.5 Total Protein 6.4 Albumin 3.3 L 04/19/18 04/19/18 04/19/18 09:35 17:30 17:30 WBC RBC Hgb Hct MCV MCH MCHC RDW Plt Count Neut % (Auto) Lymph % (Auto) [place] % (Auto) Eos % (Auto) Baso % (Auto) Neut # (Auto) Lymph # (Auto) [place] # (Auto) Eos # (Auto) Baso # (Auto) Reactive Lymphs % Reactive Lymphs # D-Dimer Sodium Potassium Chloride Carbon Dioxide BUN Creatinine Estimated Creat Clear Est GFR ( Amer) Est GFR (Non-Af Amer) Glucose Calcium Total Bilirubin AST ALT Alkaline Phosphatase Creatine Kinase < 20 L CK-MB (CK-2) 1.5 Troponin T <0.010 NT-Pro-B Natriuret Pep Total Protein Albumin Assessment/Plan - Assessment/Plan (1) Pneumonia Status: Acute Current Visit: Yes Qualifiers: Pneumonia type: due to unspecified organism Laterality: bilateral Lung location: lower lobe of lung Qualified Code(s): J18.1 - Lobar pneumonia, unspecified organism Assessment: Continue Azithromycin and Ceftriaxone (2) Anemia Status: Acute Current Visit: No Qualifiers: Anemia type: unspecified type Qualified Code(s): D64.9 - Anemia, unspecified Assessment: Stable (3) Atrial fibrillation Status: Acute Current Visit: No Qualifiers: Atrial fibrillation type: chronic Qualified Code(s): I48.2 - Chronic atrial fibrillation Assessment: Continue Eliquis VTE Assessment - RISK FACTOR SCORE VTE RISK FACTOR SCORES: AGE OVER 60 YEARS, ACUTE INFECTION OTHER THEN SEPSIS (On Eliquis) - RISK VTE MODERATE RISK: SCORE OF 2 (RISK PROXIMAL DVT 2-4%) PROPHYAXIS NEEDED
--- NOTE | 2018-04-19 20:17 | Diagnostic Imaging Report ---
PERICO ALFREDO [facility] [address] [facility] [address] [address] Report Submission Date: Apr 19, 2018 9:47:09 AM CDT Patient Study Name: ALINA WILEY Date: Apr 19, 2018 9:18:05 AM CDT Modality Type: DX Gender: F Description: CHEST : [birth year] Institution: [facility] Physician: PERICO ALFREDO Examination: Portable chest History: Evaluate lungs. PCXR, BILAT LEG SWELLING. PT STATES SHE HAS HAD LEG SWELLING SINCE HAVING HIP SURGERY SOMETIME THIS YEAR (Hx) Comparison exam: None available. Findings: Single view of the chest demonstrates a normal cardiac silhouette. Bibasilar parenchymal haziness and blunting of the diaphragmatic region. Osseous structures appropriate for age. Impression: Moderate to large bibasilar infiltrates/effusions. Electronically signed on Apr 19, 2018 9:47:09 AM CDT by: Augustine BARCLAY
[2018-04-19] MEDS: METOPROLOL TARTRATE 25 MG TABLET PO SCH (21:19)
[2018-04-19] MEDS: AMIODARONE HCL 200 MG TABLET PO SCH (21:19)
[2018-04-19] MEDS: APIXABAN 2.5 MG TABLET PO SCH (21:19)
[2018-04-19] MEDS ORDERED: FUROSEMIDE 40 MG TABLET PO ONE (21:45)
[2018-04-19] MEDS ORDERED: DILTIAZEM HCL 120 MG CAP.ER.24H ONE (21:46)
[2018-04-19] MEDS ORDERED: CYANOCOBALAMIN (VITAMIN B12) 1,000 MCG TABLET PO ONE (21:46)
[2018-04-19] MEDS ORDERED: ALLOPURINOL 100 MG TABLET ONE (21:46)
[2018-04-19 21:51] LABS: TROPONIN T <0.010 ng/mL (<0.010)
[2018-04-20 01:01] LABS: TROPONIN T <0.010 ng/mL (<0.010)
[2018-04-20 07:10] LABS: eGFR (Non-African) 41
[2018-04-20 07:11] LABS: BASOPHILS % 0.5 (0.0-1.5); EOSINOPHILS % 1.1 % (0.0-6.8); MEAN CORPUSCULAR HEMOGLOBIN 32.9 pg (28.0-34.0); MONOCYTES % 10.2 % (0.0-11.0); NEUTROPHILS # 7.6 # k/uL (1.4-7.7)
[2018-04-20] MEDS: HYDROXYUREA 500 MG CAPSULE PO SCH (09:01)
[2018-04-20] MEDS: FUROSEMIDE 40 MG TABLET PO SCH (09:01)
[2018-04-20] MEDS: APIXABAN 2.5 MG TABLET PO SCH ×2 (09:01→20:03)
[2018-04-20] MEDS: AMIODARONE HCL 200 MG TABLET PO SCH ×2 (09:01→20:03)
[2018-04-20] MEDS: DILTIAZEM HCL 120 MG CAP.ER.24H PO SCH (09:01)
[2018-04-20] MEDS: METOPROLOL TARTRATE 25 MG TABLET PO SCH ×2 (09:01→20:03)
[2018-04-20] MEDS: ALLOPURINOL 100 MG TABLET PO SCH (09:02)
[2018-04-20] MEDS: CYANOCOBALAMIN (VITAMIN B12) 1,000 MCG TABLET PO SCH (09:02)
[2018-04-20] MEDS ORDERED: IPRATROPIUM/ALBUTEROL SULFATE 3 ML AMPUL.NEB NEB ONE ×2 (09:05→17:50)
[2018-04-20] MEDS: SALINE FLUSH 10 ML DISP.SYRIN IV SCH ×2 (09:48→20:06)
[2018-04-20] MEDS: IPRATROPIUM/ALBUTEROL SULFATE 3 ML AMPUL.NEB NEB SCH ×4 (09:48→21:00)
--- NOTE | 2018-04-20 11:58 | Inpatient Progress Note ---
Subjective - Required Recertification Statement I anticipate X number of days because-include discharge plan: 2 - Review of Systems Events since last encounter: Lilli is feeling better today. Her potassium is a little low, so I have added some oral potassium replacement. Her WBC is coming down. She remains on room air. She is still SOB with ambulation. General: Fatigue. Denies: Chills, Night Sweats HEENT: Denies: Head Aches, Visual Changes Pulmonary: Dyspnea, Cough Cardiovascular: Denies: Chest Pain, Palpitations Gastrointestinal: Denies: Nausea, Vomiting Genitourinary: Other. Denies: Dysuria Musculoskeletal: Denies: Neck Pain Neurological: Weakness. Denies: Change in Speech, Confusion Objective - Exam Vitals and I&O: Vital Signs Temp 97.8 F 04/20/18 08:47 Pulse 119 H 04/20/18 08:47 Resp 18 04/20/18 08:47 BP 95/58 04/20/18 08:47 Pulse Ox 100 04/20/18 08:47 Intake & Output 04/19/18 04/19/18 04/20/18 11:59 23:59 11:59 Intake Total 700 360 Balance 700 360 Weight 49.895 kg 54.431 kg Intake: IV 100 Left Forearm 100 Oral 600 360 Other: Voiding Method Toilet Toilet # Voids 1 0 # Bowel Movements 1 General: Alert, Oriented to Person, Oriented to Place, Oriented to Time, Cooperative, Thin HEENT: Atraumatic, PERRLA Neck: Supple, No JVD Lungs: Prolonged Expiration, Decreased Air Movement Cardiovascular: Irregularly Irregular Abdomen: Normal bowel sounds, Soft Extremities: Other (3-4+ edema with chronic venous stasis both legs) Skin: Normal, [place], Warm Neurological: Normal speech Psych/Mental Status: Mental status NL - Results Results: Laboratory Results WBC 10.30 K/ul (4.00-12.00) 04/20/18 06:29 RBC 3.16 M/ul (3.90-5.20) L 04/20/18 06:29 Hgb 10.4 g/dL (12.0-16.0) L 04/20/18 06:29 Hct 32.5 % (34.5-46.5) L 04/20/18 06:29 MCV 103.0 fl (80.0-100.0) H 04/20/18 06: MCH 32.9 pg (28.0-34.0) 04/20/18 06: MCHC 32.0 g/dL (30.0-36.0) 04/20/18 06: RDW 14.9 % (11.3-14.3) H 04/20/18 06:29 Plt Count 160 K/mm3 (130-400) 04/20/18 06: Neut % (Auto) 73.2 % (39.0-79.0) 04/20/18 06: Lymph % (Auto) 15.0 % (16.0-50.0) L 04/20/18: [place] % (Auto) 10.2 % (0.0-11.0) 04/20/18 06: Eos % (Auto) 1.1 % (0.0-6.8) 04/20/18 06: Baso % (Auto) 0.5 (0.0-1.5) 04/20/18 06: Neut # (Auto) 7.6 # k/uL (1.4-7.7) 04/20/18 06: Lymph # (Auto) 4.6 # k/uL (0.6-4.0) H 04/20/18 06: [place] # (Auto) 1.1 # k/uL (0.0-0.9) H 04/20/18 06: Eos # (Auto) 0.1 # k/uL (0.0-0.6) 04/20/18 06: Baso # (Auto) 0.1 # k/uL (0.0-0.5) 04/20/18 06:29 Reactive Lymphs % 0.0 % (0.0-5.0) 04/19/18 09:05 Reactive Lymphs # 0.0 # k/uL (0.0-0.8) 04/20/18 06:29 D-Dimer 1142 ng/mL (6.0-682) H 04/19/18 09:35 Sodium 142 mmol/L (136-145) 04/20/18 06:29 Potassium 3.1 mmol/L (3.5-5.1) L 04/20/18 06:29 Chloride 99 mmol/L (98-107) 04/20/18 06:29 Carbon Dioxide 32 mmol/L (22-30) H 04/20/18 06:29 BUN 40 mg/dL (7-17) H 04/20/18 06:29 Creatinine 1.30 mg/dL (0.52-1.04) H 04/20/18 06:29 Estimated Creat Clear 30 04/20/18 06:29 Est GFR ( Amer) > 60 (60-) 04/20/18 06:29 Est GFR (Non-Af Amer) 41 (60-) L 04/20/18 06:29 Glucose 88 mg/dL (74-106) 04/20/18 06:29 Calcium 8.4 mg/dL (8.4-10.2) 04/20/18 06:29 Total Bilirubin 1.2 mg/dL (0.2-1.3) 04/20/18 06:29 AST 19 U/L (15-46) 04/20/18 06:29 ALT 41 U/L (13-69) 04/20/18 06:29 Alkaline Phosphatase 86 U/L (38-126) 04/20/18 06:29 Creatine Kinase < 20 U/L (30-135) L 04/19/18 22:30 CK-MB (CK-2) 1.4 ng/mL (0.0-5.6) 04/19/18 22:30 Troponin T <0.010 ng/mL (<0.010) 04/19/18 22:30 NT-Pro-B Natriuret Pep 371.5 pg/mL (15.0-450.0) 04/19/18 09:35 Total Protein 5.5 g/dL (6.3-8.2) L 04/20/18 06:29 Albumin 2.8 g/dL (3.5-5.0) L 04/20/18 06:29 Assessment/Plan - Assessment/Plan (1) Pneumonia Status: Acute Current Visit: Yes Qualifiers: Pneumonia type: due to unspecified organism Laterality: bilateral Lung location: lower lobe of lung Qualified Code(s): J18.1 - Lobar pneumonia, unspecified organism Assessment: Clinically improved Plan: Continue current antibiotics Hope for discharge to home tomorrow (2) Anemia Status: Acute Current Visit: No Qualifiers: Anemia type: unspecified type Qualified Code(s): D64.9 - Anemia, unspecified Assessment: Stable (3) Atrial fibrillation Status: Acute Current Visit: No Qualifiers: Atrial fibrillation type: chronic Qualified Code(s): I48.2 - Chronic atrial fibrillation Assessment: Chronic Plan: Continue Eliquis
[2018-04-20] MEDS: POTASSIUM CHLORIDE 20 MEQ TABLET.ER PO SCH (12:35)
[2018-04-20] MEDS: AZITHROMYCIN 500 MG in 0.9 % SODIUM CHLORIDE 250 ML IV SCH (14:06)
[2018-04-20] MEDS ORDERED: cefTRIAXone SODIUM 1 GM VIAL ONE (16:05)
[2018-04-20] MEDS: cefTRIAXone SODIUM 1 GM in 0.9 % SODIUM CHLORIDE 100 ML IV SCH (16:09)
--- NOTE | 2018-04-21 06:12 | Diagnostic Imaging Report ---
[facility] [address] [facility] [address] Report Submission Date: Apr 21, 2018 5:53:52 AM CDT Patient Study Name: ALINA WILEY Date: Apr 21, 2018 5:18:08 AM CDT Modality Type: DX Gender: F Description: CHEST : [birth year] Institution: [facility] Physician: [facility] Chest, PA and lateral History: Pneumonia Findings: Moderate bilateral lower lobe infiltrates and atelectasis are present. There are small bilateral pleural effusion. There is no pneumothorax. Pulmonary vascularity is normal. Since 19 April 2018, no significant change has occurred. Impression: Bilateral infiltrates, effusions and atelectasis, unchanged. Electronically signed on Apr 21, 2018 5:53:52 AM CDT by: Lucas BARCLAY
[2018-04-21 07:32] LABS: MEAN CORPUSCULAR HEMOGLOBIN 33.1 pg (28.0-34.0); eGFR (Non-African) 41
[2018-04-21] MEDS: ALLOPURINOL 100 MG TABLET PO SCH (08:42)
[2018-04-21] MEDS: POTASSIUM CHLORIDE 20 MEQ TABLET.ER PO SCH (08:43)
[2018-04-21] MEDS: SALINE FLUSH 10 ML DISP.SYRIN IV SCH ×2 (08:43→21:09)
[2018-04-21] MEDS: METOPROLOL TARTRATE 25 MG TABLET PO SCH ×2 (08:43→21:09)
[2018-04-21] MEDS: FUROSEMIDE 40 MG TABLET PO SCH (08:43)
[2018-04-21] MEDS: DILTIAZEM HCL 120 MG CAP.ER.24H PO SCH (08:43)
[2018-04-21] MEDS: CYANOCOBALAMIN (VITAMIN B12) 1,000 MCG TABLET PO SCH (08:43)
[2018-04-21] MEDS: HYDROXYUREA 500 MG CAPSULE PO SCH (08:43)
[2018-04-21] MEDS: APIXABAN 2.5 MG TABLET PO SCH ×2 (08:43→21:09)
[2018-04-21] MEDS: AMIODARONE HCL 200 MG TABLET PO SCH ×2 (08:43→21:09)
[2018-04-21] MEDS ORDERED: IPRATROPIUM/ALBUTEROL SULFATE 3 ML AMPUL.NEB NEB ONE ×2 (08:44→13:38)
[2018-04-21] MEDS: IPRATROPIUM/ALBUTEROL SULFATE 3 ML AMPUL.NEB NEB SCH ×4 (09:38→22:35)
[2018-04-21] MEDS ORDERED: 0.9 % SODIUM CHLORIDE 250 ML IV ONE (13:35)
[2018-04-21] MEDS: AZITHROMYCIN 500 MG in 0.9 % SODIUM CHLORIDE 250 ML IV SCH (13:58)
[2018-04-21] MEDS ORDERED: DIGOXIN 250MCG/1ML IVP ONE (14:03)
--- NOTE | 2018-04-21 14:15 | Inpatient Progress Note ---
Subjective - Required Recertification Statement I anticipate X number of days because-include discharge plan: 2 - Review of Systems General: Denies: Chills, Night Sweats, Fatigue HEENT: Denies: Head Aches Pulmonary: Dyspnea, Cough Cardiovascular: Denies: Chest Pain, Palpitations Gastrointestinal: Denies: Nausea, Vomiting Genitourinary: Denies: Dysuria, Frequency Musculoskeletal: Denies: Neck Pain, Shoulder Pain Neurological: Weakness Objective - Exam Vitals and I&O: Vital Signs Temp 96.8 F L 04/21/18 08:54 Pulse 112 H 04/21/18 08:54 Resp 18 04/21/18 08:54 BP 103/67 04/21/18 08:54 Pulse Ox 95 04/21/18 08:54 Intake & Output 04/20/18 04/21/18 04/21/18 23:59 11:59 23:59 Intake Total 1240 840 Balance 1240 840 Intake: Oral 840 840 Tube Feeding 400 Other: Voiding Method Toilet Toilet # Voids 1 1 General: Alert, Oriented to Person, Oriented to Place, Oriented to Time, Cooperative HEENT: Atraumatic, PERRLA, EOMI, Nose Mucous membr. moist/[place] Neck: Supple, No JVD, No thyromegaly Lungs: Prolonged Expiration Cardiovascular: Irregularly Irregular Abdomen: Normal bowel sounds, Soft, No tenderness Extremities: No clubbing, No cyanosis, No edema, Other (Chronic venous stasis changes are noted) Skin: Normal, [place], Warm Neurological: Normal speech - Results Results: Laboratory Results WBC 10.20 K/ul (4.00-12.00) 04/21/18 05:45 RBC 3.18 M/ul (3.90-5.20) L 04/21/18 05:45 Hgb 10.5 g/dL (12.0-16.0) L 04/21/18 05:45 Hct 32.6 % (34.5-46.5) L 04/21/18 05:45 MCV 102.0 fl (80.0-100.0) H 04/21/18 05:45 MCH 33.1 pg (28.0-34.0) 04/21/18 05:45 MCHC 32.4 g/dL (30.0-36.0) 04/21/18 05:45 RDW 14.3 % (11.3-14.3) 04/21/18 05:45 Plt Count 144 K/mm3 (130-400) 04/21/18 05:45 Neut % (Auto) 73.2 % (39.0-79.0) 04/20/18 06:29 Lymph % (Auto) 15.0 % (16.0-50.0) L 04/20/18 06:29 [place] % (Auto) 10.2 % (0.0-11.0) 04/20/18 06:29 Eos % (Auto) 1.1 % (0.0-6.8) 04/20/18 06:29 Baso % (Auto) 0.5 (0.0-1.5) 04/20/18 06:29 Neut # (Auto) 7.6 # k/uL (1.4-7.7) 04/20/18 06:29 Lymph # (Auto) 4.6 # k/uL (0.6-4.0) H 04/20/18 06:29 [place] # (Auto) 1.1 # k/uL (0.0-0.9) H 04/20/18 06:29 Eos # (Auto) 0.1 # k/uL (0.0-0.6) 04/20/18 06:29 Baso # (Auto) 0.1 # k/uL (0.0-0.5) 04/20/18 06:29 Reactive Lymphs % 0.0 % (0.0-5.0) 04/19/18 09:05 Reactive Lymphs # 0.0 # k/uL (0.0-0.8) 04/20/18 06:29 D-Dimer 1142 ng/mL (6.0-682) H 04/19/18 09:35 Sodium 143 mmol/L (136-145) 04/21/18 05:45 Potassium 3.3 mmol/L (3.5-5.1) L 04/21/18 05:45 Chloride 102 mmol/L (98-107) 04/21/18 05:45 Carbon Dioxide 28 mmol/L (22-30) 04/21/18 05:45 BUN 38 mg/dL (7-17) H 04/21/18 05:45 Creatinine 1.30 mg/dL (0.52-1.04) H 04/21/18 05:45 Estimated Creat Clear 30 04/21/18 05:45 Est GFR ( Amer) > 60 (60-) 04/21/18 05:45 Est GFR (Non-Af Amer) 41 (60-) L 04/21/18 05:45 Glucose 82 mg/dL (74-106) 04/21/18 05:45 Calcium 8.3 mg/dL (8.4-10.2) L 04/21/18 05:45 Total Bilirubin 0.9 mg/dL (0.2-1.3) 04/21/18 05:45 AST 16 U/L (15-46) 04/21/18 05:45 ALT 39 U/L (13-69) 04/21/18 05:45 Alkaline Phosphatase 89 U/L (38-126) 04/21/18 05:45 Creatine Kinase < 20 U/L (30-135) L 04/19/18 22:30 CK-MB (CK-2) 1.4 ng/mL (0.0-5.6) 04/19/18 22:30 Troponin T <0.010 ng/mL (<0.010) 04/19/18 22:30 NT-Pro-B Natriuret Pep 371.5 pg/mL (15.0-450.0) 04/19/18 09:35 Total Protein 5.3 g/dL (6.3-8.2) L 04/21/18 05:45 Albumin 2.7 g/dL (3.5-5.0) L 04/21/18 05:45 Assessment/Plan - Assessment/Plan (1) Pneumonia Status: Acute Current Visit: Yes Qualifiers: Pneumonia type: due to unspecified organism Laterality: bilateral Lung location: lower lobe of lung Qualified Code(s): J18.1 - Lobar pneumonia, unspecified organism (2) Anemia Status: Acute Current Visit: No Qualifiers: Anemia type: unspecified type Qualified Code(s): D64.9 - Anemia, unspecified Assessment: Continue current antibiotics (3) Atrial fibrillation Status: Acute Current Visit: No Qualifiers: Atrial fibrillation type: chronic Qualified Code(s): I48.2 - Chronic atrial fibrillation Assessment: Chronic Plan: On Eliquis and diltiazem Due to tachycardia, but with low blood pressure, I am reticent to increase her diltiazem or introduce a beta price. Will encourage PO fluid intake, and also start digoxin with a loading dose of 0.25 mg IV now and then start at .125mg/day.
[2018-04-21] MEDS ORDERED: cefTRIAXone SODIUM 1 GM VIAL ONE (17:20)
[2018-04-21] MEDS: cefTRIAXone SODIUM 1 GM in 0.9 % SODIUM CHLORIDE 100 ML IV SCH (17:28)
--- NOTE | 2018-04-22 07:01 | Inpatient Progress Note ---
Subjective - Required Recertification Statement I anticipate X number of days because-include discharge plan: 3 - Review of Systems Events since last encounter: Lilli is more short of breath this morning. She continues to be dyspneic, despite having held her nebulizers. Her O2 saturations dropped to the 80s earlier, but she is now up to 94% on 2LNC. Her blood pressure is still soft, but improved from yesterday. I have ordered another CXR, and labs. She says that she feels much better with the oxygen, but is objectively more dyspneic with conversation than she has been. General: Fatigue. Denies: Chills, Night Sweats HEENT: Denies: Head Aches, Visual Changes Pulmonary: Dyspnea. Denies: Cough, Pleuritic Chest Pain Cardiovascular: Orthopnea. Denies: Chest Pain Gastrointestinal: Denies: Nausea, Vomiting, Abdominal Pain Genitourinary: Denies: Dysuria, Frequency Musculoskeletal: Denies: Neck Pain, Shoulder Pain Neurological: Weakness. Denies: Confusion Objective - Exam Vitals and I&O: Vital Signs Temp 97.0 F L 04/22/18 05:00 Pulse 121 H 04/22/18 05:00 Resp 18 04/22/18 05:00 BP 125/85 04/22/18 05:00 Pulse Ox 92 04/22/18 05:00 Intake & Output 04/21/18 04/21/18 04/22/18 11:59 23:59 11:59 Intake Total 840 760 Balance 840 760 Intake: Oral 840 360 Tube Feeding 400 Other: Voiding Method Toilet Toilet Toilet # Voids 1 2 2 General: Alert, Oriented to Person, Oriented to Place, Moderate distress (respiratory) HEENT: Atraumatic, PERRLA, EOMI Neck: Supple, No JVD Lungs: Respiratory Distress, Prolonged Expiration, Decreased Air Movement Cardiovascular: Irregularly Irregular Abdomen: Normal bowel sounds, Soft Extremities: Other (Edema and venous stasis changes are noted) Skin: Vamo - Results Results: Laboratory Results WBC 10.20 K/ul (4.00-12.00) 04/21/18 05:45 RBC 3.18 M/ul (3.90-5.20) L 04/21/18 05:45 Hgb 10.5 g/dL (12.0-16.0) L 04/21/18 05:45 Hct 32.6 % (34.5-46.5) L 04/21/18 05:45 MCV 102.0 fl (80.0-100.0) H 04/21/18 05:45 MCH 33.1 pg (28.0-34.0) 04/21/18 05:45 MCHC 32.4 g/dL (30.0-36.0) 04/21/18 05:45 RDW 14.3 % (11.3-14.3) 04/21/18 05:45 Plt Count 144 K/mm3 (130-400) 04/21/18 05:45 Neut % (Auto) 73.2 % (39.0-79.0) 04/20/18 06:29 Lymph % (Auto) 15.0 % (16.0-50.0) L 04/20/18 06:29 Stanly % (Auto) 10.2 % (0.0-11.0) 04/20/18 06:29 Eos % (Auto) 1.1 % (0.0-6.8) 04/20/18 06:29 Baso % (Auto) 0.5 (0.0-1.5) 04/20/18 06:29 Neut # (Auto) 7.6 # k/uL (1.4-7.7) 04/20/18 06:29 Lymph # (Auto) 4.6 # k/uL (0.6-4.0) H 04/20/18 06:29 Stanly # (Auto) 1.1 # k/uL (0.0-0.9) H 04/20/18 06:29 Eos # (Auto) 0.1 # k/uL (0.0-0.6) 04/20/18 06:29 Baso # (Auto) 0.1 # k/uL (0.0-0.5) 04/20/18 06:29 Reactive Lymphs % 0.0 % (0.0-5.0) 04/19/18 09:05 Reactive Lymphs # 0.0 # k/uL (0.0-0.8) 04/20/18 06:29 D-Dimer 1142 ng/mL (6.0-682) H 04/19/18 09:35 Sodium 143 mmol/L (136-145) 04/21/18 05:45 Potassium 3.3 mmol/L (3.5-5.1) L 04/21/18 05:45 Chloride 102 mmol/L (98-107) 04/21/18 05:45 Carbon Dioxide 28 mmol/L (22-30) 04/21/18 05:45 BUN 38 mg/dL (7-17) H 04/21/18 05:45 Creatinine 1.30 mg/dL (0.52-1.04) H 04/21/18 05:45 Estimated Creat Clear 30 04/21/18 05:45 Est GFR ( Amer) > 60 (60-) 04/21/18 05:45 Est GFR (Non-Af Amer) 41 (60-) L 04/21/18 05:45 Glucose 82 mg/dL (74-106) 04/21/18 05:45 Calcium 8.3 mg/dL (8.4-10.2) L 04/21/18 05:45 Total Bilirubin 0.9 mg/dL (0.2-1.3) 04/21/18 05:45 AST 16 U/L (15-46) 04/21/18 05:45 ALT 39 U/L (13-69) 04/21/18 05:45 Alkaline Phosphatase 89 U/L (38-126) 04/21/18 05:45 Creatine Kinase < 20 U/L (30-135) L 04/19/18 22:30 CK-MB (CK-2) 1.4 ng/mL (0.0-5.6) 04/19/18 22:30 Troponin T <0.010 ng/mL (<0.010) 04/19/18 22:30 NT-Pro-B Natriuret Pep 371.5 pg/mL (15.0-450.0) 04/19/18 09:35 Total Protein 5.3 g/dL (6.3-8.2) L 04/21/18 05:45 Albumin 2.7 g/dL (3.5-5.0) L 04/21/18 05:45 Assessment/Plan - Assessment/Plan (1) Pneumonia Status: Acute Current Visit: Yes Qualifiers: Pneumonia type: due to unspecified organism Laterality: bilateral Lung location: lower lobe of lung Qualified Code(s): J18.1 - Lobar pneumonia, unspecified organism Assessment: Still on Rocephin and Azithromycin Plan: Recheck CXR also (2) Anemia Status: Acute Current Visit: No Qualifiers: Anemia type: unspecified type Qualified Code(s): D64.9 - Anemia, unspecified Assessment: Recheck CBC today (3) Atrial fibrillation Status: Acute Current Visit: No Qualifiers: Atrial fibrillation type: chronic Qualified Code(s): I48.2 - Chronic atrial fibrillation Assessment: On Eliquis and diltiazem. BP has been soft, so have not given increased beta price or increased diltiazem. I have ordered digoxin (loaded IV yesterday and now on .125mg/day.
[2018-04-22] MEDS ORDERED: FUROSEMIDE 20 MG/2 ML VIAL IVP ONE ×2 (08:03→08:30)
[2018-04-22] MEDS ORDERED: FUROSEMIDE 40 MG/4 ML VIAL ONE (08:08)
--- NOTE | 2018-04-22 08:25 | Diagnostic Imaging Report ---
KAMILA LANGFORD [facility] [address] [facility].[address] [address] Report Submission Date: Apr 22, 2018 7:38:33 AM CDT Patient Study Name: ALINA WILEY Date: Apr 22, 2018 7:13:23 AM CDT Modality Type: DX Gender: F Description: CHEST : [birth year] Institution: [facility] Physician: KAMILA LANGFORD Ap portable upright radiographs of the chest Clinical history: Dyspnea Comparison 1 day earlier Technique: anterior /posterior portable upright Findings: The changes of congestive heart failure and pulmonary edema have increased. The pleural effusions are increased. There is increased bibasilar atelectasis. The heart and mediastinal structures are otherwise unchanged. Bony thorax is unchanged Impression: Increased congestive heart failure and pulmonary edema. Pleural effusions and bibasilar atelectasis are also increased Electronically signed on Apr 22, 2018 7:38:33 AM CDT by: Efra BARCLAY
[2018-04-22] MEDS ORDERED: LEVALBUTEROL HCL 1.25 MG/3 ML AMPUL.NEB NEB ONE (08:27)
[2018-04-22 08:38] LABS: eGFR (Non-African) 38
[2018-04-22] MEDS ORDERED: PROPRANOLOL HCL 20 MG TABLET PO ONE (08:51)
[2018-04-22 09:15] VITALS: BP 137/81
[2018-04-22 09:16] LABS: MEAN CORPUSCULAR HEMOGLOBIN 31.9 pg (28.0-34.0); NEUTROPHILS # 13.8 # k/uL (1.4-7.7)
[2018-04-22 09:17] LABS: MONOCYTES % 9 % (0-11); SEGMENTED NEUTROPHILS % 76 % (39-79)
[2018-04-22 09:18] LABS: ANISOCYTOSIS 1+ (NEGATIVE); BASOPHILS % 0 % (0-2); EOSINOPHILS % 0 % (0-7)
[2018-04-22 10:56] LABS: TROPONIN T <0.010 ng/mL (<0.010)
[2018-04-22] MEDS ORDERED: LEVALBUTEROL HCL 1.25 MG/3 ML AMPUL.NEB NEB SCH (12:00)
[2018-04-22] MEDS ORDERED: DIGOXIN 125 MCG TABLET PO SCH (12:00)
[2018-04-22] MEDS ORDERED: HYDROXYUREA 500 MG CAPSULE PO SCH (12:00)
--- NOTE | 2018-04-24 12:02 | Discharge Summary ---
Discharge Summary - Discharge Sumary History of Present Illness: This is an 87 year old female who presented to the ER with c/o generalized weakness, cough, wheeze and increased pedal edema. Her CXR shows bibasilar pneumonia, and her WBC is elevated. Her pedal edema was been present for several months, but worsening. Condition at Discharge: Critical Home Medications: Ambulatory Orders Medication Instructions Recorded Allopurinol [Zyloprim] 300 mg PO DAILY 01/28/18 Amiodarone HCl [Pacerone] 200 mg PO BID 01/28/18 Apixaban [Eliquis] 2.5 mg PO BID 01/28/18 Cyanocobalamin [Vitamin B-12] 1,000 mcg PO DAILY 01/28/18 Diltiazem HCl [Diltiazem 24Hr Cd] 120 mg PO DAILY 01/28/18 Furosemide [Lasix] 40 mg PO DAILY 01/28/18 Hydroxyurea [Hydrea] 1,000 mg PO MTH12 01/28/18 Hydroxyurea [Hydrea] 500 mg PO [id number] 01/28/18 Metoprolol Tartrate [Lopressor] 25 mg PO BID 01/28/18 Consultations this Visit: None Procedures this Visit: None Allergies/Adverse Reactions: Allergies Allergy/AdvReac Type Severity Reaction Status Date / Time diclofenac sodium Allergy Mild Verified 04/19/18 13:02 Discharge Summary: Patient was admitted with pneumonia and started on rocephin and zithromax. Her HR stayed around 120's with afib so she was loaded with IV digoxin as her BP was around 90 and wouldn't tolerate increasing the CCB or BB. This didn't have much affect. On the day of transfer, patient suddenly got SOB and wheezy. Xopenox HFN x 2 did not yield results. Repeat CXR showed worsening pneumonia and CHF. BP was 125 so IV lasix 20 mg was given. AFter 20 min, no improvement with BP 130's, another 20 mg of IV lasix was given. SAT's dropped to 83% on her 5 liters so a NRB was applied - SATs 90%. Patient transferred to ICU at [facility]. Again I asked patient about intubation and she refused. Will get her on a Bipap in the ICU. Total discharge time took 1 hour. Hospital Course: Discharge dx: Respiratory distress. pulmonary edema. worsening B pneumonia. Afib with RVR. Disp - [facility] ICU
== END 2018-04-22 09:00 | disposition short-term general hospital (02) | DRG 193 ==
LOC: ED 08:34 → SOUTH 12:44 → UNDOADMIN 12:44
PROVIDERS: ADMIT Family Medicine; ATTEND Family Medicine
DX: J18.9 Pneumonia, unspecified organism (principal); J81.0 Acute pulmonary edema; R06.03 Acute respiratory distress; I48.0 Paroxysmal atrial fibrillation; D64.9 Anemia, unspecified
CPT/HCPCS: 36415; 71045; 71046; 80053; 82550; 82553; 83880; 84484; 85025; 85027; 85379; 87040; 87186; 94640; 94760; 96365; 96375; 99222; 99232; 99233; 99239; J0456; J0696; J1160; J1940; J7050; J7614; A9270; S1016

== ENCOUNTER 2018-04-30 10:35 | Inpatient (IN) | payer MEDICARE ==
--- NOTE | 2018-04-30 12:33 | History and Physical Report ---
History of Present Illnes - History of Present Illness Reason for Visit: Weakness History of Present Illness: Patient transferred to [facility] from Acute care last week in respiratory distress. She was on Bipap and underwent thoracentesis of 1.2 L fluid removal. Responded well also to diuretic therapy. MEL showed EF 64%. Urine and blood culture negative. STill on O2. She had afib with RVR - on home amiodarone and metoprolol at home. Started on diltiazem drip. Also had digoxin added. Noted to have mild CKD. Initially thought to have HAP and treated cefoxime and vanc. Antibiotics d/c'd when HAP ruled out. She has polycythemia vera - hydroxyurea was held for a buit due to thrombocytopenia. She is feeling very weak and will be admitted to SNF for PT/OT. - Past Medical History Cardiac: CHF (Systolic. MEL 64% ), HTN Heme/Onc: Anemia NOS, B12 deficiency, Iron deficiency anemia, Other (Polycythemia Vera - DR. Forrester) Musculoskeletal: Osteoarthritis Endocrine: Other (Gout) - Past Surgical History Past Surgical History: Appendectomy, Hysterectomy, Mastectomy, Total Hip Replacement (R) - Past Social History Smoke: No Alcohol: None Drugs: None Lives: Alone Domestic Violence: Negative - Health Maintenance Health Maintenance: Influenza Vaccine, Pneumococcal Vaccine Influenza Vaccine: Current for this Influenza Season Pneumonia Vaccine: Yes Review of Systems - Review of Systems Constitutional: negative: Fever, Weakness Eyes: negative: pain ENT: negative: Ear Pain, Ear Discharge Respiratory: negative: Cough Cardiovascular: negative: Chest Pain Gastrointestinal: negative: Nausea, Vomiting, Abdominal Pain Genitourinary: negative: Dysuria Musculoskeletal: negative: Neck Pain Skin: negative: Rash Neurological: Weakness - Medications/Allergies Allergies/Adverse Reactions: Allergies Allergy/AdvReac Type Severity Reaction Status Date / Time diclofenac sodium Allergy Mild Verified 04/19/18 13:02 Home Medications: Home Medications Digoxin [Lanoxin] 125 mcg PO [id number] 04/30/18 Levalbuterol HCl [Xopenex] 0.31 mg IH Q8 PRN 04/30/18 Exam - Exam General: Alert, Oriented to Person, Oriented to Place, Oriented to Time, Cooperative, No acute distress HEENT: Atraumatic, PERRLA, EOMI Neck: Normal Range of Motion Lungs: Clear to auscultation, Normal air movement, Speaks full Sentences Cardiovascular: Regular rate Abdomen: Normal bowel sounds, Soft Integumentary: Normal Extremities: No edema Neurological: Generalized Weakness Psych/Mental Status: Mental status NL, Mood NL, Appropriate Affect, Intact Judgment Assessment/Plan - Assessment/Plan (1) Weakness Status: Acute Current Visit: Yes Plan: Start PT/OT for strengthening and endurance training. (2) Atrial fibrillation Status: Chronic Current Visit: No Qualifiers: Atrial fibrillation type: chronic Qualified Code(s): I48.2 - Chronic atrial fibrillation Plan: Will continue meds set forth by cardiology. (3) HTN (hypertension) Status: Chronic Current Visit: No Qualifiers: Hypertension type: essential hypertension Qualified Code(s): I10 - Essential (primary) hypertension Plan: Stable. (4) Polycythemia vera Status: Chronic Current Visit: No Plan: STable. Recheck labs next week. VTE Assessment - RISK FACTOR SCORE VTE RISK FACTOR SCORES: AGE OVER 60 YEARS - RISK VTE LOW RISK: SCORE OF 1 OR LESS (RISK PROXIMAL DVT 0.4%) NO PROPHYLAXIS NEEDED
[2018-04-30] MEDS ORDERED: LEVALBUTEROL HCL 0.31 MG IH PRN (13:00)
[2018-04-30 13:37] VITALS: BMI 21.2
[2018-04-30] MEDS ORDERED: ALLOPURINOL 100 MG TABLET ONE (19:56)
[2018-04-30] MEDS: METOPROLOL TARTRATE 25 MG TABLET PO SCH (20:20)
[2018-04-30] MEDS: AMIODARONE HCL 200 MG TABLET PO SCH (20:20)
[2018-05-01] MEDS: CYANOCOBALAMIN (VITAMIN B12) 1,000 MCG TABLET PO SCH (08:58)
[2018-05-01] MEDS: AMIODARONE HCL 200 MG TABLET PO SCH ×2 (08:58→20:41)
[2018-05-01] MEDS ORDERED: ALLOPURINOL 300 MG PO SCH (09:00)
[2018-05-01] MEDS: FUROSEMIDE 40 MG TABLET PO SCH (09:03)
[2018-05-01] MEDS: METOPROLOL TARTRATE 25 MG TABLET PO SCH ×2 (09:03→20:41)
[2018-05-01] MEDS: ALLOPURINOL 100 MG TABLET PO SCH (10:48)
[2018-05-01] MEDS: HYDROXYUREA 500 MG CAPSULE PO SCH (10:49)
[2018-05-01 11:57] LABS: eGFR (Non-African) 41
[2018-05-01 12:44] LABS: MEAN CORPUSCULAR HEMOGLOBIN 32.2 pg (28.0-34.0)
[2018-05-01] MEDS: MENTHOL/ZINC OXIDE 1 APPL TUBE TP SCH ×2 (13:38→20:38)
[2018-05-02] MEDS: MENTHOL/ZINC OXIDE 1 APPL TUBE TP SCH ×2 (08:30→20:19)
[2018-05-02] MEDS: DIGOXIN 125 MCG TABLET PO SCH (11:09)
[2018-05-02] MEDS: METOPROLOL TARTRATE 25 MG TABLET PO SCH ×2 (11:10→20:19)
[2018-05-02] MEDS: ALLOPURINOL 100 MG TABLET PO SCH (11:10)
[2018-05-02] MEDS: CYANOCOBALAMIN (VITAMIN B12) 1,000 MCG TABLET PO SCH (11:10)
[2018-05-02] MEDS: AMIODARONE HCL 200 MG TABLET PO SCH ×2 (11:10→20:19)
[2018-05-02] MEDS: FUROSEMIDE 40 MG TABLET PO SCH (11:10)
[2018-05-02] MEDS: POTASSIUM CHLORIDE 20 MEQ TABLET.ER PO SCH (11:17)
[2018-05-02] MEDS: HYDROXYUREA 500 MG CAPSULE PO SCH (13:43)
[2018-05-03] MEDS: POTASSIUM CHLORIDE 20 MEQ TABLET.ER PO SCH (08:24)
[2018-05-03] MEDS: CYANOCOBALAMIN (VITAMIN B12) 1,000 MCG TABLET PO SCH (08:24)
[2018-05-03] MEDS: METOPROLOL TARTRATE 25 MG TABLET PO SCH ×3 (08:25→19:14)
[2018-05-03] MEDS: ALLOPURINOL 100 MG TABLET PO SCH (08:25)
[2018-05-03] MEDS: FUROSEMIDE 40 MG TABLET PO SCH (08:25)
[2018-05-03] MEDS: HYDROXYUREA 500 MG CAPSULE PO SCH (08:25)
[2018-05-03] MEDS: AMIODARONE HCL 200 MG TABLET PO SCH ×2 (08:25→19:09)
[2018-05-03] MEDS: MENTHOL/ZINC OXIDE 1 APPL TUBE TP SCH ×2 (08:26→19:09)
[2018-05-04] MEDS: POTASSIUM CHLORIDE 20 MEQ TABLET.ER PO SCH (09:10)
[2018-05-04] MEDS: MENTHOL/ZINC OXIDE 1 APPL TUBE TP SCH ×2 (09:10→21:00)
[2018-05-04] MEDS: HYDROXYUREA 500 MG CAPSULE PO SCH (09:10)
[2018-05-04] MEDS: DIGOXIN 125 MCG TABLET PO SCH (09:11)
[2018-05-04] MEDS: AMIODARONE HCL 200 MG TABLET PO SCH ×2 (09:11→21:00)
[2018-05-04] MEDS: FUROSEMIDE 40 MG TABLET PO SCH (09:11)
[2018-05-04] MEDS: METOPROLOL TARTRATE 25 MG TABLET PO SCH ×2 (09:11→21:00)
[2018-05-04] MEDS: CYANOCOBALAMIN (VITAMIN B12) 1,000 MCG TABLET PO SCH (09:12)
[2018-05-04] MEDS: ALLOPURINOL 100 MG TABLET PO SCH (09:12)
[2018-05-05] MEDS: HYDROXYUREA 500 MG CAPSULE PO SCH (09:13)
[2018-05-05] MEDS: MENTHOL/ZINC OXIDE 1 APPL TUBE TP SCH ×2 (09:13→20:30)
[2018-05-05] MEDS: AMIODARONE HCL 200 MG TABLET PO SCH ×2 (09:14→20:28)
[2018-05-05] MEDS: CYANOCOBALAMIN (VITAMIN B12) 1,000 MCG TABLET PO SCH (09:14)
[2018-05-05] MEDS: FUROSEMIDE 40 MG TABLET PO SCH (09:14)
[2018-05-05] MEDS: POTASSIUM CHLORIDE 20 MEQ TABLET.ER PO SCH (09:14)
[2018-05-05] MEDS: METOPROLOL TARTRATE 25 MG TABLET PO SCH ×2 (09:14→20:28)
[2018-05-05] MEDS: ALLOPURINOL 100 MG TABLET PO SCH (09:15)
[2018-05-06] MEDS: MENTHOL/ZINC OXIDE 1 APPL TUBE TP SCH ×2 (08:23→20:12)
[2018-05-06] MEDS: FUROSEMIDE 40 MG TABLET PO SCH (08:24)
[2018-05-06] MEDS: POTASSIUM CHLORIDE 20 MEQ TABLET.ER PO SCH (08:24)
[2018-05-06] MEDS: DIGOXIN 125 MCG TABLET PO SCH (08:24)
[2018-05-06] MEDS: CYANOCOBALAMIN (VITAMIN B12) 1,000 MCG TABLET PO SCH (08:25)
[2018-05-06] MEDS: AMIODARONE HCL 200 MG TABLET PO SCH ×2 (08:25→20:12)
[2018-05-06] MEDS: METOPROLOL TARTRATE 25 MG TABLET PO SCH ×2 (08:25→20:12)
[2018-05-06] MEDS: ALLOPURINOL 100 MG TABLET PO SCH (08:26)
[2018-05-06] MEDS ORDERED: ACETAMINOPHEN 325 MG TABLET ONE (08:30)
[2018-05-06] MEDS ORDERED: ACETAMINOPHEN 325 MG TABLET PO PRN (08:38)
[2018-05-06] MEDS: HYDROXYUREA 500 MG CAPSULE PO SCH (12:13)
--- NOTE | 2018-05-07 07:42 | Inpatient Progress Note ---
Subjective - Required Recertification Statement I anticipate X number of days because-include discharge plan: 7 - Review of Systems Subjective: Patient continues to be weak. Asks about going home but staff reports she is hard to get to participate in therapy and eating. Denies pain. Objective - Exam Vitals and I&O: Vital Signs Temp 97.6 F 05/06/18 20:27 Pulse 76 05/06/18 21:00 Resp 18 05/06/18 21:00 BP 108/62 05/06/18 20:27 Pulse Ox 95 05/06/18 20:27 Intake & Output 05/06/18 05/06/18 05/07/18 11:59 23:59 11:59 Intake Total 240 800 180 Balance 240 800 180 Intake: Oral 240 800 180 Other: Voiding Method Toilet Toilet # Voids 1 1 4 General: Alert, Oriented to Person, Oriented to Place, Oriented to Time, Cooperative, No acute distress, Mild distress Lungs: Clear to auscultation, Normal air movement, Speaks full Sentences Cardiovascular: Regular rate - Results Results: Laboratory Results WBC 12.10 K/ul (4.00-12.00) H 05/01/18 11:10 RBC 3.24 M/ul (3.90-5.20) L 05/01/18 11:10 Hgb 10.4 g/dL (12.0-16.0) L 05/01/18 11:10 Hct 33.4 % (34.5-46.5) L 05/01/18 11:10 MCV 103.0 fl (80.0-100.0) H 05/01/18 11:10 MCH 32.2 pg (28.0-34.0) 05/01/18 11:10 MCHC 31.2 g/dL (30.0-36.0) 05/01/18 11:10 RDW 15.0 % (11.3-14.3) H 05/01/18 11:10 Plt Count 302 K/mm3 (130-400) 05/01/18 11:10 Sodium 137 mmol/L (136-145) 05/01/18 08:30 Potassium 3.4 mmol/L (3.5-5.1) L 05/01/18 08:30 Chloride 95 mmol/L (98-107) L 05/01/18 08:30 Carbon Dioxide 35 mmol/L (22-30) H 05/01/18 08:30 BUN 26 mg/dL (7-17) H 05/01/18 08:30 Creatinine 1.30 mg/dL (0.52-1.04) H 05/01/18 08:30 Estimated Creat Clear 28 05/01/18 08:30 Est GFR ( Amer) > 60 (60-) 05/01/18 08:30 Est GFR (Non-Af Amer) 41 (60-) L 05/01/18 08:30 Glucose 126 mg/dL (74-106) H 05/01/18 08:30 Calcium 8.0 mg/dL (8.4-10.2) L 05/01/18 08:30 Assessment/Plan - Assessment/Plan (1) Weakness Status: Acute Current Visit: Yes Plan: Continue therapy and to encourage patient. (2) Atrial fibrillation Status: Chronic Current Visit: No Qualifiers: Atrial fibrillation type: chronic Qualified Code(s): I48.2 - Chronic atrial fibrillation (3) HTN (hypertension) Status: Chronic Current Visit: No Qualifiers: Hypertension type: essential hypertension Qualified Code(s): I10 - Essential (primary) hypertension (4) Polycythemia vera Status: Chronic Current Visit: No
[2018-05-07] MEDS: POTASSIUM CHLORIDE 20 MEQ TABLET.ER PO SCH (08:40)
[2018-05-07] MEDS: CYANOCOBALAMIN (VITAMIN B12) 1,000 MCG TABLET PO SCH (08:40)
[2018-05-07] MEDS: FUROSEMIDE 40 MG TABLET PO SCH (08:40)
[2018-05-07] MEDS: MENTHOL/ZINC OXIDE 1 APPL TUBE TP SCH ×2 (08:41→20:15)
[2018-05-07] MEDS: ALLOPURINOL 100 MG TABLET PO SCH (08:41)
[2018-05-07] MEDS: METOPROLOL TARTRATE 25 MG TABLET PO SCH ×2 (08:41→20:14)
[2018-05-07] MEDS: AMIODARONE HCL 200 MG TABLET PO SCH ×2 (08:41→20:14)
[2018-05-07] MEDS: HYDROXYUREA 500 MG CAPSULE PO SCH (10:33)
[2018-05-08] MEDS: AMIODARONE HCL 200 MG TABLET PO SCH ×2 (09:00→20:22)
[2018-05-08] MEDS: HYDROXYUREA 500 MG CAPSULE PO SCH (09:00)
[2018-05-08] MEDS: METOPROLOL TARTRATE 25 MG TABLET PO SCH ×2 (09:00→20:21)
[2018-05-08] MEDS: DIGOXIN 125 MCG TABLET PO SCH (09:01)
[2018-05-08] MEDS: POTASSIUM CHLORIDE 20 MEQ TABLET.ER PO SCH (09:01)
[2018-05-08] MEDS: FUROSEMIDE 40 MG TABLET PO SCH (09:01)
[2018-05-08] MEDS: CYANOCOBALAMIN (VITAMIN B12) 1,000 MCG TABLET PO SCH (09:01)
[2018-05-08] MEDS: ALLOPURINOL 100 MG TABLET PO SCH (09:02)
[2018-05-08] MEDS: MENTHOL/ZINC OXIDE 1 APPL TUBE TP SCH ×2 (09:02→22:24)
[2018-05-09] MEDS: METOPROLOL TARTRATE 25 MG TABLET PO SCH ×2 (08:12→20:16)
[2018-05-09] MEDS: AMIODARONE HCL 200 MG TABLET PO SCH ×2 (08:12→20:16)
[2018-05-09] MEDS: ALLOPURINOL 100 MG TABLET PO SCH (08:13)
[2018-05-09] MEDS: FUROSEMIDE 40 MG TABLET PO SCH (08:13)
[2018-05-09] MEDS: CYANOCOBALAMIN (VITAMIN B12) 1,000 MCG TABLET PO SCH (08:13)
[2018-05-09] MEDS: MENTHOL/ZINC OXIDE 1 APPL TUBE TP SCH ×2 (08:13→20:25)
[2018-05-09] MEDS: POTASSIUM CHLORIDE 20 MEQ TABLET.ER PO SCH (08:14)
[2018-05-09] MEDS: HYDROXYUREA 500 MG CAPSULE PO SCH (12:19)
[2018-05-10] MEDS: FUROSEMIDE 40 MG TABLET PO SCH (09:24)
[2018-05-10] MEDS: ALLOPURINOL 100 MG TABLET PO SCH (09:24)
[2018-05-10] MEDS: DIGOXIN 125 MCG TABLET PO SCH (09:24)
[2018-05-10] MEDS: METOPROLOL TARTRATE 25 MG TABLET PO SCH ×2 (09:25→20:52)
[2018-05-10] MEDS: AMIODARONE HCL 200 MG TABLET PO SCH ×2 (09:25→20:51)
[2018-05-10] MEDS: POTASSIUM CHLORIDE 20 MEQ TABLET.ER PO SCH (09:25)
[2018-05-10] MEDS: HYDROXYUREA 500 MG CAPSULE PO SCH (09:26)
[2018-05-10] MEDS: CYANOCOBALAMIN (VITAMIN B12) 1,000 MCG TABLET PO SCH (09:26)
[2018-05-10] MEDS: MENTHOL/ZINC OXIDE 1 APPL TUBE TP SCH ×2 (09:26→21:07)
[2018-05-11] MEDS: POTASSIUM CHLORIDE 20 MEQ TABLET.ER PO SCH (09:04)
[2018-05-11] MEDS: METOPROLOL TARTRATE 25 MG TABLET PO SCH ×2 (09:04→20:37)
[2018-05-11] MEDS: FUROSEMIDE 40 MG TABLET PO SCH (09:04)
[2018-05-11] MEDS: ALLOPURINOL 100 MG TABLET PO SCH (09:04)
[2018-05-11] MEDS: HYDROXYUREA 500 MG CAPSULE PO SCH (09:05)
[2018-05-11] MEDS: CYANOCOBALAMIN (VITAMIN B12) 1,000 MCG TABLET PO SCH (09:05)
[2018-05-11] MEDS: MENTHOL/ZINC OXIDE 1 APPL TUBE TP SCH ×2 (09:06→20:39)
[2018-05-11] MEDS: AMIODARONE HCL 200 MG TABLET PO SCH ×2 (09:07→20:37)
[2018-05-12] MEDS: METOPROLOL TARTRATE 25 MG TABLET PO SCH ×2 (08:58→20:27)
[2018-05-12] MEDS: ALLOPURINOL 100 MG TABLET PO SCH (08:58)
[2018-05-12] MEDS: CYANOCOBALAMIN (VITAMIN B12) 1,000 MCG TABLET PO SCH (08:58)
[2018-05-12] MEDS: FUROSEMIDE 40 MG TABLET PO SCH (08:58)
[2018-05-12] MEDS: AMIODARONE HCL 200 MG TABLET PO SCH ×2 (08:58→20:27)
[2018-05-12] MEDS: POTASSIUM CHLORIDE 20 MEQ TABLET.ER PO SCH (08:59)
[2018-05-12] MEDS: MENTHOL/ZINC OXIDE 1 APPL TUBE TP SCH ×2 (08:59→20:27)
[2018-05-12] MEDS: DIGOXIN 125 MCG TABLET PO SCH (08:59)
[2018-05-12] MEDS: HYDROXYUREA 500 MG CAPSULE PO SCH (09:00)
[2018-05-13] MEDS: MENTHOL/ZINC OXIDE 1 APPL TUBE TP SCH ×2 (08:34→19:34)
[2018-05-13] MEDS: FUROSEMIDE 40 MG TABLET PO SCH (08:36)
[2018-05-13] MEDS: CYANOCOBALAMIN (VITAMIN B12) 1,000 MCG TABLET PO SCH (08:36)
[2018-05-13] MEDS: AMIODARONE HCL 200 MG TABLET PO SCH ×2 (08:37→19:34)
[2018-05-13] MEDS: ALLOPURINOL 100 MG TABLET PO SCH (08:38)
[2018-05-13] MEDS: METOPROLOL TARTRATE 25 MG TABLET PO SCH ×2 (08:41→19:33)
[2018-05-13] MEDS: POTASSIUM CHLORIDE 20 MEQ TABLET.ER PO SCH (08:41)
[2018-05-13] MEDS: HYDROXYUREA 500 MG CAPSULE PO SCH (13:13)
[2018-05-13] MEDS: HYDROCORTISONE 2.5% RECTAL 28.35 GM TUBE RC SCH (19:34)
[2018-05-14] MEDS: HYDROXYUREA 500 MG CAPSULE PO SCH (08:51)
[2018-05-14] MEDS: MENTHOL/ZINC OXIDE 1 APPL TUBE TP SCH ×2 (08:51→20:18)
[2018-05-14] MEDS: POTASSIUM CHLORIDE 20 MEQ TABLET.ER PO SCH (08:52)
[2018-05-14] MEDS: CYANOCOBALAMIN (VITAMIN B12) 1,000 MCG TABLET PO SCH (08:52)
[2018-05-14] MEDS: AMIODARONE HCL 200 MG TABLET PO SCH ×2 (08:52→20:18)
[2018-05-14] MEDS: FUROSEMIDE 40 MG TABLET PO SCH (08:52)
[2018-05-14] MEDS: METOPROLOL TARTRATE 25 MG TABLET PO SCH ×2 (08:52→20:18)
[2018-05-14] MEDS: DIGOXIN 125 MCG TABLET PO SCH (08:52)
[2018-05-14] MEDS: ALLOPURINOL 100 MG TABLET PO SCH (08:53)
[2018-05-14 15:50] LABS: eGFR (Non-African) 41
[2018-05-14] MEDS: HYDROCORTISONE 2.5% RECTAL 28.35 GM TUBE RC SCH (20:19)
[2018-05-14 20:51] VITALS: BP 101/56
--- NOTE | 2018-05-15 07:53 | Discharge Summary ---
Discharge Summary - Discharge Sumary History of Present Illness: Patient transferred to [facility] from Acute care last week in respiratory distress. She was on Bipap and underwent thoracentesis of 1.2 L fluid removal. Responded well also to diuretic therapy. MEL showed EF 64%. Urine and blood culture negative. STill on O2. She had afib with RVR - on home amiodarone and metoprolol at home. Started on diltiazem drip. Also had digoxin added. Noted to have mild CKD. Initially thought to have HAP and treated cefoxime and vanc. Antibiotics d/c'd when HAP ruled out. She has polycythemia vera - hydroxyurea was held for a buit due to thrombocytopenia. She is feeling very weak and will be admitted to SNF for PT/OT. Condition at Discharge: Stable Home Medications: Ambulatory Orders Medication Instructions Recorded Allopurinol [Zyloprim] 300 mg PO DAILY 01/28/18 Cyanocobalamin [Vitamin B-12] 1,000 mcg PO DAILY 01/28/18 Hydroxyurea [Hydrea] 1,000 mg PO MTH12 01/28/18 Hydroxyurea [Hydrea] 500 mg PO [id number] 01/28/18 Metoprolol Tartrate [Lopressor] 25 mg PO BID 01/28/18 Levalbuterol HCl [Xopenex] 0.31 mg IH Q8 PRN 04/30/18 Amiodarone HCl [Pacerone] 200 mg PO DAILY #30 tablet 05/14/18 Digoxin [Lanoxin] 125 mcg PO [id number] #15 tablet 05/14/18 Furosemide [Lasix] 40 mg PO DAILY #30 tablet 05/14/18 Hydroxyurea [Hydrea] 1,000 mg PO MTH12 capsule 05/14/18 Potassium Chloride [Klor-Con M20] 20 meq PO DAILY #30 tablet.er 05/14/18 Consultations this Visit: None Procedures this Visit: None Allergies/Adverse Reactions: Allergies Allergy/AdvReac Type Severity Reaction Status Date / Time diclofenac sodium Allergy Mild Verified 04/19/18 13:02 Patient Problems: Current Active Problems Problem Status Onset Weakness Acute Discharge Summary: Patient was admitted for SNF care after her stay at [facility] ICU for respiratory distress and Afib. She did ok with therapy and eventually was ready for discharge. Meds were reconciled and new scripts sent to [facility]. Labs were stable. She will be discharged home with home health. Hospital Course: Discharge Dx: Weakness. AFib. HTN. Polycythemia vera. Disposition - Home with Health.
[2018-05-15] MEDS: MENTHOL/ZINC OXIDE 1 APPL TUBE TP SCH (08:42)
[2018-05-15] MEDS: HYDROXYUREA 500 MG CAPSULE PO SCH (08:43)
[2018-05-15] MEDS: METOPROLOL TARTRATE 25 MG TABLET PO SCH (08:43)
[2018-05-15] MEDS: POTASSIUM CHLORIDE 20 MEQ TABLET.ER PO SCH (08:43)
[2018-05-15] MEDS: FUROSEMIDE 40 MG TABLET PO SCH (08:43)
[2018-05-15] MEDS: AMIODARONE HCL 200 MG TABLET PO SCH (08:44)
[2018-05-15] MEDS: ALLOPURINOL 100 MG TABLET PO SCH (08:45)
[2018-05-15] MEDS: CYANOCOBALAMIN (VITAMIN B12) 1,000 MCG TABLET PO SCH (08:46)
== END 2018-05-15 12:25 | disposition home or self-care (01) | DRG 948 ==
LOC: SOUTH 10:35
PROVIDERS: ADMIT Family Medicine; ATTEND Family Medicine
DX: R53.1 Weakness (principal); I50.9 Heart failure, unspecified; D45 Polycythemia vera; I10 Essential (primary) hypertension; I48.91 Unspecified atrial fibrillation; M15.9 Polyosteoarthritis, unspecified
CPT/HCPCS: 36415; 80048; 85027; A9270

== ENCOUNTER 2018-05-17 23:27 | Emergency (ER) | payer MEDICARE ==
--- NOTE | 2018-05-17 23:48 | ED Physician Documentation ---
Fall - HISTORIAN Historian: patient - HPI Stated Complaint: Fall and hit back/left of head Chief Complaint: Fall Onset: just prior to arrival Where: home Context: slipped (wheel got caught of walker on rug ) r: mild Associated Symptoms:: no loss of consciousness Location of Pain/Injury: head Injury to Right Extremity: none Injury to Left Extremity: none Further Comments: yes (She reports getting up to go to the bathroom and she states the wheel of the walker got caught on the rug and she fell back. Denies any LOC. No pain in any other location. She reports a mild headache initally but no longer.) - ROS CONST: no problems EYES/ENT: none CVS/RESP: none GI/: denies: nausea, vomiting - PAST HX Past History: A-Fib, other (Gout ) Immunizations: UTD Allergies/Adverse Reactions: Allergies Allergy/AdvReac Type Severity Reaction Status Date / Time diclofenac sodium Allergy Mild Verified 05/18/18 00:00 Home Medications: Ambulatory Orders Medication Instructions Recorded Allopurinol [Zyloprim] 300 mg PO DAILY 01/28/18 Cyanocobalamin [Vitamin B-12] 1,000 mcg PO DAILY 01/28/18 Hydroxyurea [Hydrea] 500 mg PO [id number] 01/28/18 Amiodarone HCl [Pacerone] 200 mg PO DAILY #30 tablet 05/14/18 Digoxin [Lanoxin] 125 mcg PO [id number] #15 tablet 05/14/18 Furosemide [Lasix] 40 mg PO DAILY #30 tablet 05/14/18 Hydroxyurea [Hydrea] 1,000 mg PO MTH12 capsule 05/14/18 Potassium Chloride [Klor-Con M20] 20 meq PO DAILY #30 tablet.er 05/14/18 - SOCIAL HX Smoking History: non-smoker Alcohol Use: none Drug Use: none - FAMILY HX Family History: none - VITAL SIGNS Vital Signs: Vital Signs Temp Pulse Resp BP Pulse Ox 113/69 05/15/18 09:00 - REVIEWED ASSESSMENTS Nursing Assessment Reviewed: Yes Vitals Reviewed: Yes Procedures Wound Location: head Wound's Depth, Shape: superficial Wound Explored: clean Wound Repaired With: Dermabond ED Results Lab/Radiology - Radiology Radiology Impressions: Head CT without contrast Clinical history: Fall with laceration left posterior head. Technique: CT examination of brain is performed in contiguous axial slices with sagittal and coronal reconstructions. Comparison is made to a prior study dated 01/27/2018. Findings: 4th ventricle lies in a normal midline position. The ventricles and sulci are prominent secondary to atrophy. Chronic small vessel ischemic changes are present in the periventricular regions. There is no hypodense or hyperdense mass or intracranial hemorrhage. Intracranial atherosclerosis is evident. There is an old fracture left zygoma. Impression: 1. Atrophy and chronic small vessel ischemic changes. 2. No acute intracranial changes. Electronically signed on May 18, 2018 12:22:22 AM [employer] by: Yasir Singer Physical Exam - Physical Exam General Appearance: no acute distress, alert Head: non-tender, no swelling, trauma (posterior left 3 cm lac not bleeding currently ) Eye: [place] ENT: nml external inspection, no dental injury, no oral injury, airway nml Resp/CVS: chest non-tender, breath sounds nml, no resp. distress, heart sounds nml Abdomen: soft, normal bowel sounds, no distension, non-tender Neuro: oriented x3, CN's nml as tested, sensation nml, motor nml, mood/affect nml Skin: color nml, no rash Back: normal inspection Extremities: atraumatic Joint: joints nml, nml ROM - [place] Coma Score Eyes Open: Spontaneous Speech: Oriented Motor: Obeys Commands Discharge Clincal Impression: Laceration of scalp Qualifiers: Encounter type: initial encounter Qualified Code(s): S01.01XA - Laceration without foreign body of scalp, initial encounter Referrals: Suzette Kilpatrick MD [Primary Care Provider] - 2 Days Additional Instructions: 1. Keep area clean and dry 2. DO no pick glue off wound 3. Notify PCP of any increased pain or any swelling 4. Return to ER for any concerns Condition: Stable Disposition: 01 HOME, SELF-CARE Decision to Admit: NO Date of Decison to Admit: 05/18/18 Decision Time: 00:30
--- NOTE | 2018-05-18 00:27 | Diagnostic Imaging Report ---
MARKEL CHANG [facility] [address] [facility] [address] [place], [place]. [address] Report Submission Date: May 18, 2018 12:22:22 AM VICE PRESIDENT [employer]OPMENT Patient Study Name: ALINA WILEY Date: May 17, 2018 11:59:24 PM [employer]ICE [employer]OP[employer] Modality Type: CT\SR Gender: F Description: CT BRAIN W/O CONTRAST : [birth year] Institution: [facility] Physician: MARKEL CHANG Head CT without contrast Clinical history: Fall with laceration left posterior head. Technique: CT examination of brain is performed in contiguous axial slices with sagittal and coronal reconstructions. Comparison is made to a prior study dated 01/27/2018. Findings: 4th ventricle lies in a normal midline position. The ventricles and sulci are prominent secondary to atrophy. Chronic small vessel ischemic changes are present in the periventricular regions. There is no hypodense or hyperdense mass or intracranial hemorrhage. Intracranial atherosclerosis is evident. There is an old fracture left zygoma. Impression: 1. Atrophy and chronic small vessel ischemic changes. 2. No acute intracranial changes. Electronically signed on May 18, 2018 12:22:22 AM VICE PRESIDENT [employer]ELOPMENT by: Yasir BARCLAY
[2018-05-18 03:13] VITALS: BP 113/55
== END 2018-05-18 00:34 | disposition home or self-care (01) ==
LOC: ED 23:27
DX: S01.01XA Laceration without foreign body of scalp, initial encounter (principal); W19.XXXA Unspecified fall, initial encounter; Y92.018 Other place in single-family (private) house as the place of occurrence of the external cause; Y93.9 Activity, unspecified; Y99.9 Unspecified external cause status
CPT/HCPCS: 12002; 70450; 99283

== ENCOUNTER 2018-06-06 14:42 | Emergency (ER) | payer MEDICARE ==
[2018-06-06 14:58] VITALS: BP 134/78
--- NOTE | 2018-06-06 15:08 | ED Physician Documentation ---
General Adult - HISTORIAN Historian: patient, other (caregiver) - HPI Stated Complaint: Low Blood Pressure Chief Complaint: General Adult Additional Information: Patient presents to ED at the advice of home health after taking her blood pressure standing at [address] Kilpatrick was contacted and told patient to come to the ED. Patient was completely asymptomatic, denying dizzienes, lightheadness, chest pain, shortness of breath or syncope. 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 Patient has been hospitalized recently with pneumonia and had a left thoracentesis. Metoprolol was discontinued on 05/18/2018, however, it appears home health may have been giving it to her anyway, however, home health aid reports she has not given it to her the last 3 days. Onset: hours (1) Timing: gone now Severity: mild - ROS CONST: denies: fever EYES/ENT: none CVS/RESP: denies: chest pain, shortness of breath, cough GI/: denies: abdominal pain, problems urinating, vomiting, nausea, diarrhea MS/SKIN/LYMPH: ankle swelling (but improved) NEURO/PSYCH: denies: headache, dizziness - PAST HX Past History: A-Fib, CHF, other (recurrent pneumonia) Other History: none Surgeries/Procedures: hysterectomy Allergies/Adverse Reactions: Allergies Allergy/AdvReac Type Severity Reaction Status Date / Time diclofenac sodium Allergy Mild Verified 06/06/18 14:59 Home Medications: Ambulatory Orders Medication Instructions Recorded Allopurinol [Zyloprim] 300 mg PO DAILY 01/28/18 Hydroxyurea [Hydrea] 500 mg PO [id number] 01/28/18 Digoxin [Lanoxin] 125 mcg PO [id number] #15 tablet 05/14/18 Hydroxyurea [Hydrea] 1,000 mg PO MTH12 capsule 05/14/18 Potassium Chloride [Klor-Con M20] 20 meq PO DAILY #30 tablet.er 05/14/18 Amiodarone HCl [Pacerone] 200 mg PO DAILY 06/06/18 Furosemide [Lasix] 1 tab PO DAILY 06/06/18 - SOCIAL HX Smoking History: non-smoker Alcohol Use: none Drug Use: none - FAMILY HX Family History: Yes - VITAL SIGNS Vital Signs: Vital Signs Temp Pulse Resp BP Pulse Ox 98.1 F 104 H 15 134/78 97 06/06/18 14:50 06/06/18 14:50 06/06/18 14:50 06/06/18 14:50 06/06/18 14:50 - REVIEWED ASSESSMENTS Nursing Assessment Reviewed: Yes Vitals Reviewed: Yes ED Results Lab/Radiology - Radiology Radiology Impressions: Examination: PA and lateral chest. History: Evaluate lung conti. Comparison exam: 22 April 2018 Findings: PA and lateral views of the chest demonstrates a prominent cardiac and mediastinal silhouette. Blunting of the lung bases bilaterally. Apical lung conti appear to be clear. Osseous degenerative changes. Impression: Moderate sized bibasilar effusions. Mild cardiomegaly. Electronically signed on Jun 06, 2018 3:41:26 PM DIRECTOR OF COUNTERINTELLIGENCE by: Augustine Case - Orders Orders: ED Orders Category Date Time Status Place IV Lock 1T Care 06/06/18 15:04 Active CHEST 2VIEW [RAD] Stat Exams 06/06/18 Ordered BNP [NT-proBNP] Stat Lab 06/06/18 Ordered CBC/PLATELET/DIFF Routine Lab 06/06/18 Ordered CMP Routine Lab 06/06/18 Ordered General Adult Physical Exam - PHYSICAL EXAM GENERAL APPEARANCE: no distress EENT: EAGLE NECK: normal inspection, supple RESPIRATORY: no resp distress, other (markedly diminished breath sounds bilaterally) CVS: irregularly irregular rhy, murmur ABDOMEN: soft, normal bowel sounds, non-tender BACK: no CVA tenderness SKIN: warm/dry, normal color EXTREMITIES: edema (+1 pitting edema lower extremity edema bilaterally to ankles) NEURO: oriented X3, CN's nml as tested, motor nml Discharge Clincal Impression: Hypotension Qualifiers: Hypotension type: unspecified hypotension type Qualified Code(s): I95.9 - Hypotension, unspecified Referrals: Suzette Kilpatrick MD [Primary Care Provider] - 2 Days Additional Instructions: 1. HOLD Metoprolol until follow up with PCP or Poker Supervisor 2. Drink 64 ounces of fluids, preferrably decaffeinated 3. Follow up with PCP within 3 days. 4. Call 911 with chest pain, shortness of breath, dizziness or syncope. Condition: Stable Disposition: 01 HOME, SELF-CARE Decision to Admit: NO Date of Decison to Admit: 06/06/18 Decision Time: 16:19
[2018-06-06 15:24] LABS: BASOPHILS % 0.5 (0.0-1.5); EOSINOPHILS % 0.8 % (0.0-6.8); MEAN CORPUSCULAR HEMOGLOBIN 34.6 pg (28.0-34.0); MONOCYTES % 9.9 % (0.0-11.0); NEUTROPHILS # 4.2 # k/uL (1.4-7.7)
[2018-06-06 15:39] LABS: eGFR (Non-African) 41
--- NOTE | 2018-06-07 03:58 | Diagnostic Imaging Report ---
HARSH TEJEDA [facility] [address] [facility] [address] [place] [address]. [id number] Report Submission Date: Jun 06, 2018 3:41:26 PM MEDIA ANALYTICS MANAGER Patient Study Name: ALINA WILEY Date: Jun 06, 2018 3:12:00 PM MEDIA ANALYTICS MANAGER Modality Type: DX Gender: F Description: CHEST : [birth year] Institution: [facility] Physician: HARSH TEJEDA Examination: PA and lateral chest. History: Evaluate lung conti. Comparison exam: 22 April 2018 Findings: PA and lateral views of the chest demonstrates a prominent cardiac and mediastinal silhouette. Blunting of the lung bases bilaterally. Apical lung conti appear to be clear. Osseous degenerative changes. Impression: Moderate sized bibasilar effusions. Mild cardiomegaly. Electronically signed on Jun 06, 2018 3:41:26 PM MEDIA ANALYTICS MANAGER by: Augustine BARCLAY
== END 2018-06-06 16:32 | disposition home or self-care (01) ==
LOC: ED 14:42
DX: I95.9 Hypotension, unspecified (principal)
CPT/HCPCS: 36415; 71046; 80053; 83880; 85025; 99282; 99283; S1016

== ENCOUNTER 2018-06-19 12:11 | Outpatient (CLI) | payer MEDICARE ==
[2018-06-19 17:20] LABS: eGFR (Non-African) 41
== END 2018-06-19 12:12 ==
LOC: LAB 12:11
PROVIDERS: ATTEND Family Medicine
DX: R29.6 Repeated falls (principal)
CPT/HCPCS: 36415; 80048; 85027

== ENCOUNTER 2018-06-27 10:07 | Outpatient (CLI) | payer MEDICARE ==
[2018-06-27 11:14] LABS: MEAN CORPUSCULAR HEMOGLOBIN 35.4 pg (28.0-34.0)
[2018-06-27 11:15] LABS: BASOPHILS % 0.3 (0.0-1.5); EOSINOPHILS % 0.6 % (0.0-6.8); MONOCYTES % 6.4 % (0.0-11.0); NEUTROPHILS # 3.8 # k/uL (1.4-7.7)
[2018-06-27 13:23] LABS: eGFR (Non-African) > 60
== END 2018-06-27 10:12 | disposition home or self-care (01) ==
LOC: LAB 10:07
PROVIDERS: ATTEND Internal Medicine Cardiovascular Disease
DX: I10 Essential (primary) hypertension (principal); I48.0 Paroxysmal atrial fibrillation
CPT/HCPCS: 36415; 80048; 80162; 85025

== ENCOUNTER 2018-10-01 09:54 | Outpatient (CLI) | payer MEDICARE ==
[2018-10-01 10:53] LABS: eGFR (Non-African) > 60
[2018-10-01 10:54] LABS: BASOPHILS % 0.7 (0.0-1.5); MEAN CORPUSCULAR HEMOGLOBIN 37.7 pg (28.0-34.0); MONOCYTES % 6.7 % (0.0-11.0); NEUTROPHILS # 5.4 # k/uL (1.4-7.7)
[2018-10-01 11:25] LABS: ANISOCYTOSIS 2+ (NEGATIVE); HYPOCHROMASIA 1+ (NEGATIVE)
== END 2018-10-01 09:56 ==
LOC: LAB 09:54
PROVIDERS: ATTEND Internal Medicine Cardiovascular Disease
DX: I48.0 Paroxysmal atrial fibrillation (principal); I10 Essential (primary) hypertension
CPT/HCPCS: 36415; 80048; 80162; 83880; 85025

== ENCOUNTER 2018-10-12 14:14 | Observation (INO) | payer MEDICARE ==
--- NOTE | 2018-10-12 14:24 | ED Physician Documentation ---
Fall - HPI Stated Complaint: fall Chief Complaint: Fall Additional Information: Patient presents to ER after falling at home today. Patient states she was ambulating to the bathroom with her walker and fell while trying to get her walker through the bathroom door way. She denies hitting her head or loss of consciousness. Patient complains of right hip, right elbow, and right shoulder pain. Patient has a history of atrial fibrillation but is not on anticoagulation. Patient lives alone. Onset: just prior to arrival Where: home Context: lost balance r: mild Associated Symptoms:: denies: no loss of consciousness Location of Pain/Injury: R shoulder, upper extremity, hip Injury to Right Extremity: shoulder, elbow, hip Injury to Left Extremity: none Further Comments: no - ROS CONST: no problems NEURO: denies: dizziness MS/SKIN/LYMPH: denies: weakness EYES/ENT: none CVS/RESP: none GI/: denies: nausea, vomiting - PAST HX Past History: none Allergies/Adverse Reactions: Allergies Allergy/AdvReac Type Severity Reaction Status Date / Time diclofenac sodium Allergy Mild Verified 10/12/18 14:29 Home Medications: Ambulatory Orders Medication Instructions Recorded Allopurinol [Zyloprim] 300 mg PO DAILY 01/28/18 Hydroxyurea [Hydrea] 500 mg PO [id number] 01/28/18 Digoxin [Lanoxin] 125 mcg PO [id number] #15 tablet 05/14/18 Hydroxyurea [Hydrea] 1,000 mg PO MTH12 capsule 05/14/18 Potassium Chloride [Klor-Con M20] 20 meq PO DAILY #30 tablet.er 05/14/18 Amiodarone HCl [Pacerone] 200 mg PO DAILY 06/06/18 Furosemide [Lasix] 1 tab PO DAILY 06/06/18 - SOCIAL HX Smoking History: non-smoker Alcohol Use: none Drug Use: none - FAMILY HX Family History: none - VITAL SIGNS Vital Signs: Vital Signs Temp Pulse Resp BP Pulse Ox 134/78 06/06/18 16:32 - REVIEWED ASSESSMENTS Nursing Assessment Reviewed: Yes Vitals Reviewed: Yes Progress - Progress Progress: 1535 Patient declined pain medication. 1540 Discussed with [facility] for transfer. Awaiting Ortho to call back. 1553 Discussed with outside plant supervisor. She discussed with Dr. Edwin Do, recommends follow up with Dr. Lombardo on Sunday morning at [facility]. Place patient in sling [address] Kilpatrick, suggest admitting as observation. ED Results Lab/Radiology - Radiology Radiology Impressions: Report Submission Date: Oct 12, 2018 3:36:20 PM CDT Patient Study Name: ALINA WILEY Date: Oct 12, 2018 2:35:48 PM CDT Modality Type: DX Gender: F Description: RT HIP 2VIEW COMPLETE : [birth year] Institution: [facility] Physician: HARSH MERCEDES Two views of the right hip Clinical history: Fall. Pain. Findings: Examination right hip in AP and frog-leg lateral views demonstrates right total hip replacement. Prosthetic components are normally seated in the ramona bony structures. There is no evident fracture and no lytic or blastic lesion. Impression: 1. Right total hip replacement. Electronically signed on Oct 12, 2018 3:36:20 PM CDT by: Yasir Mckenna Report Submission Date: Oct 12, 2018 3:37:07 PM CDT Patient Study Name: ALINA WILEY E Date: Oct 12, 2018 2:35:48 PM CDT Modality Type: DX Gender: F Description: ELBOW 2 VIEWS : [birth year] Institution: [facility] Physician: HARSH MERCEDES Two views of the right elbow Clinical history: Fall. Pain. Findings: Examination right elbow in AP and lateral views fails to demonstrate evidence of fracture or dislocation. There is mild narrowing of the joint space and spur formation of the coronoid process of the ulna. Impression: 1. Mild degenerative changes. 2. No fracture. Electronically signed on Oct 12, 2018 3:37:07 PM CDT by: Yasir Mckenna Report Submission Date: Oct 12, 2018 3:38:13 PM CDT Patient Study Name: ALINA WILEY E Date: Oct 12, 2018 2:35:48 PM CDT Modality Type: DX Gender: F Description: SHOULDER 2 VIEWS OR MORE : [birth year] Institution: [facility] Physician: HARSH MERCEDES Three views right shoulder Clinical history: Fall. Pain. Findings: Examination the right shoulder in multiple views demonstrates fracture humeral neck with impaction of the humeral neck into the humeral head and mild comminution. There is internal rotation of the humeral head. Acromioclavicular joint is narrowed. Impression: 1. Comminuted impacted fracture of the humeral neck and head. 2. Degenerative changes. Electronically signed on Oct 12, 2018 3:38:13 PM CDT by: Yasir Singer Physical Exam - Physical Exam General Appearance: no acute distress, alert. 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 No: pain with neck movement Eye: EAGLE ENT: nml external inspection Resp/CVS: chest non-tender, breath sounds nml, tachycardia Abdomen: soft, normal bowel sounds. No: tenderness Neuro: oriented x3 Skin: no rash, other (skin tear right elbow) Back: normal inspection Extremities: bony point-tenderness (right lateral hip, right shoulder, right elbow) Joint: Nml gait/weight bearing - Minh Coma Score Eyes Open: Spontaneous Speech: Oriented Motor: Obeys Commands Discharge Clincal Impression: Intractable pain Closed fracture of right proximal humerus Qualifiers: Encounter type: initial encounter Fracture morphology: unspecified fracture morphology Qualified Code(s): S42.201A - Unspecified fracture of upper end of right humerus, initial encounter for closed fracture Referrals: Suzette Kilpatrick MD [Primary Care Provider] - 2 Days Comments: Will admit as observation for pain control. Condition: Stable Decision to Admit: NO Date of Decison to Admit: 10/12/18 Decision Time: 16:19
--- NOTE | 2018-10-12 16:13 | Diagnostic Imaging Report ---
HARSH MERCEDES [facility] [address] [facility] [address] [address] Report Submission Date: Oct 12, 2018 3:38:13 PM CDT Patient Study Name: ALINA WILEY Date: Oct 12, 2018 2:35:48 PM CDT Modality Type: DX Gender: F Description: SHOULDER 2 VIEWS OR MORE : [birth year] Institution: [facility] Physician: HARSH MERCEDES Three views right shoulder Clinical history: Fall. Pain. Findings: Examination the right shoulder in multiple views demonstrates fracture humeral neck with impaction of the humeral neck into the humeral head and mild comminution. There is internal rotation of the humeral head. Acromioclavicular joint is narrowed. Impression: 1. Comminuted impacted fracture of the humeral neck and head. 2. Degenerative changes. Electronically signed on Oct 12, 2018 3:38:13 PM CDT by: Yasir BARCLAY
--- NOTE | 2018-10-12 16:14 | Diagnostic Imaging Report ---
HARSH MERCEDES [facility] [address] [facility] [address] [address] Report Submission Date: Oct 12, 2018 3:37:07 PM CDT Patient Study Name: ALINA WILEY Date: Oct 12, 2018 2:35:48 PM CDT Modality Type: DX Gender: F Description: ELBOW 2 VIEWS : [birth year] Institution: [facility] Physician: HARSH MERCEDES Two views of the right elbow Clinical history: Fall. Pain. Findings: Examination right elbow in AP and lateral views fails to demonstrate evidence of fracture or dislocation. There is mild narrowing of the joint space and spur formation of the coronoid process of the ulna. Impression: 1. Mild degenerative changes. 2. No fracture. Electronically signed on Oct 12, 2018 3:37:07 PM CDT by: Yasir BARCLAY
--- NOTE | 2018-10-12 16:14 | Diagnostic Imaging Report ---
HARSH MERCEDES [facility] [address] [facility] [address] Report Submission Date: Oct 12, 2018 3:36:20 PM CDT Patient Study Name: ALINA WILEY Date: Oct 12, 2018 2:35:48 PM CDT Modality Type: DX Gender: F Description: RT HIP 2VIEW COMPLETE : [birth year] Institution: [facility] Physician: HARSH MERCEDES Two views of the right hip Clinical history: Fall. Pain. Findings: Examination right hip in AP and frog-leg lateral views demonstrates right total hip replacement. Prosthetic components are normally seated in the blackfeet bony structures. There is no evident fracture and no lytic or blastic lesion. Impression: 1. Right total hip replacement. Electronically signed on Oct 12, 2018 3:36:20 PM CDT by: Yasir BARCLAY
[2018-10-12] MEDS ORDERED: HYDROcodone /APAP 5/325 1 EACH TABLET PO ONE (16:48)
[2018-10-12] MEDS ORDERED: HYDROcodone /APAP 5/325 1 EACH TABLET ONE (16:49)
[2018-10-12] MEDS ORDERED: ENOXAPARIN SODIUM 30 MG/0.3 ML DISP.SYRIN SQ ONE ×2 (16:49→18:10)
[2018-10-12 17:34] VITALS: BMI 18.6
[2018-10-12] MEDS: HYDROcodone /APAP 5/325 1 EACH TABLET PO PRN (22:56)
--- NOTE | 2018-10-13 07:00 | Discharge Summary ---
Discharge Summary - Discharge [facility] Admission Date: 10/12/18 Discharge Date: 10/13/18 History of Present Illness: Patient presented to ED after falling at home sustaining a right humeral head fracture. Patient was admitted for observation for pain control. Condition at Discharge: Stable Home Medications: Ambulatory Orders Medication Instructions Recorded Allopurinol [Zyloprim] 300 mg PO DAILY 01/28/18 Hydroxyurea [Hydrea] 500 mg PO [id number] 01/28/18 Digoxin [Lanoxin] 125 mcg PO [id number] #15 tablet 05/14/18 Hydroxyurea [Hydrea] 1,000 mg PO MTH12 capsule 05/14/18 Potassium Chloride [Klor-Con M20] 20 meq PO DAILY #30 tablet.er 05/14/18 Amiodarone HCl [Pacerone] 200 mg PO DAILY 06/06/18 Furosemide [Lasix] 1 tab PO DAILY 06/06/18 Consultations this Visit: None Procedures this Visit: None Allergies/Adverse Reactions: Allergies Allergy/AdvReac Type Severity Reaction Status Date / Time diclofenac sodium Allergy Mild Verified 10/12/18 14:29 Patient Problems: Current Active Problems Problem Status Onset Closed fracture of right proximal humerus Acute Intractable pain Acute Discharge Summary: Patient was admitted for observation to control pain after falling and fracturing her right humeral head. Patient was effectively treated with Vesuvius.
[2018-10-13] MEDS ORDERED: ALLOPURINOL 100 MG TABLET ONE (07:54)
[2018-10-13] MEDS ORDERED: DIGOXIN 125 MCG TABLET PO ONE (07:54)
[2018-10-13] MEDS ORDERED: AMIODARONE HCL 200 MG TABLET PO ONE (07:54)
[2018-10-13] MEDS ORDERED: POTASSIUM CHLORIDE 20 MEQ TABLET.ER ONE (07:54)
[2018-10-13] MEDS ORDERED: FUROSEMIDE 20 MG TABLET PO SCH (09:00)
[2018-10-13] MEDS ORDERED: AMIODARONE HCL 200 MG TABLET PO SCH (09:00)
[2018-10-13] MEDS ORDERED: POTASSIUM CHLORIDE 20 MEQ TABLET.ER PO SCH (09:00)
[2018-10-13] MEDS ORDERED: HYDROXYUREA 500 MG CAPSULE PO SCH (09:00)
[2018-10-13] MEDS ORDERED: ALLOPURINOL 300 MG PO SCH (09:00)
[2018-10-13 11:35] VITALS: BP 141/76
[2018-10-13] MEDS ORDERED: HYDROcodone /APAP 5/325 1 EACH TABLET ONE (12:30)
[2018-10-13] MEDS: HYDROcodone /APAP 5/325 1 EACH TABLET PO PRN (12:32)
[2018-10-14] MEDS ORDERED: DIGOXIN 125 MCG TABLET PO SCH (09:00)
[2018-10-14] MEDS ORDERED: HYDROXYUREA 500 MG CAPSULE PO SCH (12:00)
== END 2018-10-13 14:40 | disposition home or self-care (01) ==
LOC: ED 14:14 → SOUTH 16:29
PROVIDERS: ADMIT Physician Assistant Medical; ATTEND Physician Assistant Medical
DX: S42.201A Unspecified fracture of upper end of right humerus, initial encounter for closed fracture (principal); G89.21 Chronic pain due to trauma; M25.521 Pain in right elbow; M25.511 Pain in right shoulder; M25.551 Pain in right hip; W18.39XA Other fall on same level, initial encounter; Y93.89 Activity, other specified; Y92.002 Bathroom of unspecified non-institutional (private) residence as the place of occurrence of the external cause; Z96.641 Presence of right artificial hip joint
CPT/HCPCS: 29260; 73030; 73070; 73502; 99284; 99285; A9270; G0378; J1650; 99217